=== PATIENT | female | born 1965 | race Caucasian/White ===

== ENCOUNTER 2017-09-05 12:31 | Emergency (ER) | payer BC ==
[2017-09-05] MEDS ORDERED: oxyCODONE/Acetamin 5/325 MG* TAB PO ONE (12:45)
--- NOTE | 2017-09-05 14:00 | RAD ---
HISTORY: Bilateral knee pain COMPARISONS: March 18, 2008 VIEWS: 7, Frontal, lateral, and oblique views of the left knee and of the right knee with axial views of both knees FINDINGS: Right: BONE DENSITY: Normal. BONES: There is no displaced fracture. JOINTS: There is moderate tricompartmental osteoarthritis, most pronounced within the medial compartment. This is progressed from the previous examination. ALIGNMENT: There is no dislocation. The alignment is anatomic. SOFT TISSUES: Unremarkable. Left: BONE DENSITY: Normal. BONES: There is no displaced fracture. JOINTS: There is moderate tricompartmental osteoarthritis, most pronounced within the medial compartment. ALIGNMENT: There is no dislocation. The alignment is anatomic. SOFT TISSUES: Unremarkable. OTHER FINDINGS: None. IMPRESSION: BILATERAL OSTEOARTHRITIS. NO ACUTE OSSEOUS INJURY. IF SYMPTOMS PERSIST, RECOMMEND REPEAT IMAGING.
--- NOTE | 2017-09-05 14:21 | ED ---
Ricardo Loaiza Thomas, scribed for Karla Purcell MD on 09/05/17 at 1248 . Lower Extremity - HPI Summary HPI Summary: The patient is a 52 y/o female presenting to the ED complaining of bilateral knee pain that began two days ago status post cortisone injections to bilateral knees that occurred three days ago. The pain is constant. The pain is moderate in severity. The pain is aggravated by movement and is alleviated by nothing. The patient has treated the pain with hydrocodone x1, ibuprofen, and muscle relaxers prior to arrival. Patient denies fever. - History of Current Complaint Stated Complaint: KNEE PAIN Time Seen by Provider: 09/05/17 12:37 Hx Obtained From: Patient Mechanism Of Injury: Other - Cortisone shots three days ago Onset of Pain: Days - 2 Onset/Duration: Still Present Severity Currently: Moderate Timing: Constant Location: Is Discrete @ - bilateral knee Associated Signs And Symptoms: Negative: Fever Aggravating Factor(s): Movement Alleviating Factor(s): Nothing - Allergies/Home Medications Allergies/Adverse Reactions: Allergies Allergy/AdvReac Type Severity Reaction Status Date / Time Sulfa Drugs Allergy Intermediate Swelling Verified 11/21/12 07:33 PMH/Surg Hx/FS Hx/Imm Hx Previously Healthy: No Endocrine/Hematology History: Reports: Hx Anticoagulant Therapy, Hx Diabetes Cardiovascular History: Reports: Hx Hypertension Respiratory History: Reports: Hx Asthma, Other Respiratory Problems/Disorders - pe Infectious Disease History: Denies: Traveled Outside the [place] in Last 30 Days - Family History Known Family History: Positive: Cardiac Disease - coronary artery disease, Hypertension, Diabetes - Social History Alcohol Use: None Hx Substance Use: No Substance Use Type: Reports: None Hx Tobacco Use: No Smoking Status (MU): Never Smoked Tobacco Review of Systems Negative: Fever Positive: Other - Bilateral knee pain All Other Systems Reviewed And Are Negative: Yes Physical Exam - Summary Physical Exam Summary: VITAL SIGNS: Reviewed. GENERAL: Patient is a morbidly obese female who is lying comfortable in the stretcher. Patient is not in any acute respiratory distress. HEAD AND FACE: No signs of trauma. No ecchymosis, hematomas or skull depressions. No sinus tenderness. EYES: PERRLA, EOMI x 2, No injected conjunctiva, no nystagmus. EARS: Hearing grossly intact. Ear canals and tympanic membranes are within normal limits. MOUTH: Oropharynx within normal limits. NECK: Supple, trachea is midline, no adenopathy, no JVD, no carotid bruit, no c- spine tenderness, neck with full ROM. CHEST: Symmetric, no tenderness at palpation LUNGS: Clear to auscultation bilaterally. No wheezing or crackles. CVS: Regular rate and rhythm, S1 and S2 present, no murmurs or gallops appreciated. ABDOMEN: Soft, non-tender, morbidly obese. No signs of distention. No rebound no guarding, and no masses palpated. Bowel sounds are normal. EXTREMITIES: She does not have tenderness, inflammatory signs, or swelling over her knees. She does have pain with left knee movement. FROM in all major joints , no edema, no cyanosis or clubbing. NEURO: Alert and oriented x 3. No acute neurological deficits. Speech is normal and follows commands. SKIN: Dry and warm Triage Information Reviewed: Yes Vital Signs Reviewed: Yes Diagnostics - Laboratory Lab Statement: Any lab studies that have been ordered have been reviewed, and results considered in the medical decision making process. - Radiology Bilateral Knee XR Xray Interpretation: No Acute Changes - BILATERAL OSTEOARTHRITIS. NO ACUTE OSSEOUS INJURY. IF SYMPTOMS PERSIST, RECOMMEND REPEAT IMAGING. ED physician has reviewed this report and agrees. Radiology Interpretation Completed By: ED Physician - ED physician reading: bilateral osteoarthritis. No fracture noted., Radiologist Re-Evaluation - Re-Evaluation First Eval Re-Evaluation Time: 14:11 Change: Unchanged Comment: I reviewed the knee XR with her and she is feeling better. Lower Extremity Course/Dx - Course Assessment/Plan: The patient has bilateral osteoarthritis. She will be given Percocet for the pain and follow up with orthopedics. My reading of the Knee XR shows bilateral osteoarthritis with no fracture. - Diagnoses Provider Diagnoses: Osteoarthritis of knees, bilateral Discharge - Discharge Plan Condition: Stable Disposition: HOME Patient Education Materials: Osteoarthritis (ED), Knee Pain (ED) Referrals: Bashir Upton MD [Medical Doctor] - 3 Days Additional Instructions: Follow up with Dr. Upton, orthopedics, in three days. Return to the emergency department for any new or worsening symptoms. The documentation as recorded by the Ricardo thomas Thomas accurately reflects the service I personally performed and the decisions made by me, Karla Purcell MD.
[2017-09-05 14:34] VITALS: BP 151/70
== END 2017-09-05 14:33 | disposition home or self-care (01) ==
LOC: ED 12:31
DX: M17.0 Bilateral primary osteoarthritis of knee (principal); M25.562 Pain in left knee; M25.561 Pain in right knee
CPT/HCPCS: 99282; A9270-GY

== ENCOUNTER 2018-06-24 13:26 | Inpatient (IN) | payer BC ==
[2018-06-24 15:28] LABS: EGFR Non-African American 90.2 (>60)
[2018-06-24 15:31] LABS: INR 2.44 (0.77-1.02)
[2018-06-24 15:39] LABS: ABS Basophils 0 10^3/ul (0-0.2); ABS Eosinophils 0.5 10^3/ul (0-0.6); ABS Lymphocytes 1.1 10^3/ul (1.0-4.8); ABS Monocytes 0.5 10^3/ul (0-0.8); ABS Neutrophils 7.1 10^3/ul (1.5-7.7); ABS Nucleated RBC 0 10^3/ul; Eosinophil % 5.2 % (0-6); Hematocrit 40 % (35-47); Hemoglobin 13.1 g/dl (12.0-16.0); Lymphocyte % 11.8 % (25-47); Mean Corpuscular HGB Conc 33 g/dl (31-36); Mean Corpuscular Hemoglobin 29 pg (27-31); Mean Corpuscular Volume 88 fL (80-97); Mean Platelet Volume 8.7 um3 (7.4-10.4); Nucleated Red Blood Cells % 0; Platelet Count 275 10^3/ul (150-450); Red Blood Count 4.52 10^6/ul (4.00-5.40); Red Cell Distribution Width 15 % (10.5-15); White Blood Count 9.2 10^3/ul (3.5-10.8)
--- NOTE | 2018-06-24 15:53 | RAD ---
INDICATION: Dizziness with hypertension COMPARISON: Most recent comparison chest x-ray is dated February 16, 2016 TECHNIQUE: Single AP portable view of the chest was obtained. FINDINGS: Image quality is compromised due to the relative inferiority of a portable chest x-ray. The heart and mediastinum exhibit normal size and contour. The lungs are grossly clear. There is no evidence of a large pleural effusion. Visualized bones are normal for the patient's age. IMPRESSION: No radiographic evidence for acute cardiopulmonary abnormality on this portable chest x-ray.
[2018-06-24] MEDS ORDERED: Iodixanol* (CONTRAST) 320 MG/ML 100 ML SDV IV ONE (16:02)
[2018-06-24] MEDS ORDERED: Magnesium Sulfate 2 GM IV* 2 GM/50 ML BAG IVPB ONE (16:30)
[2018-06-24] MEDS ORDERED: NS 0.9% 1000 ML*IV.FLUID IV ONE (16:52)
[2018-06-24] MEDS ORDERED: Magnesium Sulfate IV* 2 GM in NS 0.9% 100 ML* 100 ML IVPB ONE ×2 (17:00→21:10)
[2018-06-24] MEDS ORDERED: Atropine SYRINGE* 0.1 MG/ML 10 ML SYRINGE (1 MG) ONE (17:12)
[2018-06-24] MEDS: Atropine SYRINGE* 0.1 MG/ML 10 ML SYRINGE (1 MG) IV PUSH ONE ×2 (17:13→18:47)
--- NOTE | 2018-06-24 17:19 | RAD ---
INDICATION: Dizziness and right-sided headache COMPARISON: None. TECHNIQUE: Contiguous axial sections of the brain were obtained from the skull base to the vertex before and after the injection of 75 mL Visipaque 320 FINDINGS: The ventricles, cisterns and sulci are within normal limits. There are no enhancing masses. There is no evidence of acute vascular injury. The szymanski-white matter differentiation is adequately maintained and there is no sulcal effacement. No significant focal abnormality or mass effect is present. There is no evidence for intracranial hemorrhage. No significant focal osseous abnormality is present. The visualized portion of the paranasal sinuses appear clear. The mastoid air cells are well aerated bilaterally. IMPRESSION: Normal CT of the brain with and without intravenous contrast.
[2018-06-24] MEDS ORDERED: Phytonadione Oral Solution* 5 MG/25 ML UDC PO ONE (17:49)
--- NOTE | 2018-06-24 17:59 | ED ---
Dizziness - HPI Summary HPI Summary: Patient presents with acute on chronic dizziness today. She reports she's had dizziness over the past year but today it was worse. When this occurs, she said her vision goes dark and her upper body starts to shake. She does not syncopize when this happens nor did she syncopize today. She is been following with her PCP Dr. Burrell for these symptoms over the past year. She's been diagnosed with vertigo and takes meclizine which helps sometimes but sometimes it does not. She cannot consistently say that her symptoms are worse with positional change although position change can trigger a dizzy spell. She admits to symptoms when she's driving at times w/o turning her head or seatbelt pressing on her neck. She does have diabetes and checked her sugar after this dizziness today and her sugar was in the mid 100s which is normal for her. Her diabetes has been well controlled on oral medications for many years. Additionally, she does take atenolol for HTN and lisinopril for renal protection. She reports she was recently dropped from atenolol twice a day dose to once a day and did not notice any improvement in her dizziness symptoms. She also takes lasix PRN for LE edema. She reports she had a Holter monitor with symptoms but report was normal. Also states she had a nuclear stress test recently which was normal (Edu). She denies chest pain, shortness of breath , nausea, diaphoresis, numbness, tingling, weakness. She reports she get diarrhea most days but denies fever, chills, URI sx, ab pain, urinary sx and no rashes or wounds to report. She also denies h/o tick bite/Lyme disease but does not believe she's ever been tested. She is on coumadin for h/o PE and breast ca - believes she had testing while off of her coumadin and was told she does have a coaguloapthy so has been on coumadin for years since. Follows w/ Dr. Light and breast cancer status has been in remission. She reports her INR was 3.8 yesterday and so she held a dose - will repeat today. No other areas of bruising or bleeding to report. No recent falls or head injury. She and Dr. Burrell had discussed possible head imaging to further assess for chronic dizziness but this has not been done yet. No h/o TX or CVA. - History Of Current Complaint Chief Complaint: EDDizziness Stated Complaint: DIZZINESS Time Seen by Provider: 06/24/18 14:15 Hx Obtained From: Patient, Family/Wincher - mom - Allergies/Home Medications Allergies/Adverse Reactions: Allergies Allergy/AdvReac Type Severity Reaction Status Date / Time Sulfa (Sulfonamide Allergy Hives/Diff. Verified 06/24/18 13:32 Antibiotics) Breathing/I tching PMH/Surg Hx/FS Hx/Imm Hx Previously Healthy: Yes Endocrine/Hematology History: Reports: Hx Anticoagulant Therapy - coumadin, Hx Diabetes, Hx Coagulopothy - takes coumadin daily Denies: Hx Thyroid Disease, Hx Anemia Cardiovascular History: Reports: Hx Hypertension, Hx Valvular Heart Disease - cardiac murmur - assessed and reported as bengin Denies: Hx Congestive Heart Failure, Hx Coronary Artery Disease, Hx Myocardial Infarction, Hx Pacemaker/ICD, Hx Syncope Respiratory History: Reports: Hx Asthma, Hx Pulmonary Embolism, Other Respiratory Problems/Disorders - pe Denies: Hx Chronic Obstructive Pulmonary Disease (COPD), Hx Lung Cancer, Hx Pulmonary Edema GI History: Denies: Hx Cirrhosis, Hx Gastroesophageal Reflux Disease, Hx Hiatal Hernia History: Denies: Hx Acute Renal Failure, Hx Chronic Renal Failure, Hx Renal Disease Musculoskeletal History: Reports: Hx Arthritis - knees are "bone on bone" - h/o steroid injections, Hx Back Problems - per pt, stenosis Neurological History: Reports: Hx Headaches - Rt sided that involve periorbital region - intermittent, chronic Denies: Hx CVA, Hx Dementia - Cancer History Cancer Type, Location and Year: BREAST CA Date and Location of Last Treatment: Rt side of chest Infectious Disease History: No Infectious Disease History: Denies: Traveled Outside the [place] in Last 30 Days - Family History Known Family History: Positive: Cardiac Disease - coronary artery disease, a. fib, Hypertension, Diabetes - Social History Occupation: Employed Full-time - works from home for [employer] Lives: With Family - and children Alcohol Use: None Hx Substance Use: No Substance Use Type: Reports: None Hx Tobacco Use: No Smoking Status (MU): Never Smoked Tobacco Review of Systems Constitutional: Negative Negative: Fever, Chills, Fatigue Positive: Photophobia - mild. Negative: Blurred Vision, Diplopia ENT: Negative Negative: Epistaxis, Dental Pain, Sore Throat, Ear Ache, Nasal Discharge Cardiovascular: Negative Negative: Palpitations, Chest Pain Respiratory: Negative Negative: Shortness Of Breath, Cough Positive: Diarrhea - daily loose stools. Negative: Abdominal Pain, Vomiting, Nausea Genitourinary: Negative Positive: Arthralgia - chronic, B/L knees Skin: Negative Positive: Headache - Rt sided -mild (presents as usual WEIR). Negative: Weakness , Paresthesia, Numbness, Syncope, Slurred Speech Psychological: Normal All Other Systems Reviewed And Are Negative: Yes Physical Exam Triage Information Reviewed: Yes Vital Signs On Initial Exam: Initial Vitals Temp Pulse Resp BP Pulse Ox 98.8 F 71 16 146/74 99 06/24/18 13:29 06/24/18 13:29 06/24/18 13:06/24/18 13:06/24/18 13:29 Vital Signs Reviewed: Yes Appearance: Positive: Well-Appearing, No Pain Distress, Obese Skin: Positive: Warm, Skin Color Reflects Adequate Perfusion, Dry - no rash, no wounds Head/Face: Positive: Normal Head/Face Inspection Eyes: Positive: Normal, EOMI, SHIVA - mild photophobia w/ exam but okay w/ lights on in room, Conjunctiva Clear. Negative: Conjunctiva Inflammed, Discharge ENT: Positive: Normal ENT inspection, Hearing grossly normal, Pharynx normal, TMs normal, Uvula midline. Negative: Nasal congestion, Tonsillar swelling, Tonsillar exudate, Sinus tenderness Dental: Negative: Abscess @ Neck: Positive: Supple, Nontender, No Lymphadenopathy Respiratory/Lung Sounds: Positive: Clear to Auscultation, Breath Sounds Present. Negative: Rales, Rhonchi, Wheezes, Unable to speak in full sentences, Fatigue Cardiovascular: Positive: Pulses are Symmetrical in both Upper and Lower Extremities, Murmur, S1, S2. Negative: Leg Edema Left, Leg Edema Right Abdomen Description: Positive: Nontender, No Organomegaly, Soft Bowel Sounds: Positive: Present Musculoskeletal: Positive: Normal, Strength/ROM Intact Neurological: Positive: Normal, Sensory/Motor Intact, Alert, Oriented to Person Place, Time, CN Intact II-III, Facial Symmetry, Speech Normal, Other - no nystagmus. Negative: Pronator Drift Present Psychiatric: Positive: Normal Diagnostics - Vital Signs Vital Signs Temp Pulse Resp BP Pulse Ox 06/24/18 16:59 39 18 133/71 100 06/24/18 16:57 36 18 149/74 100 06/24/18 16:55 45 18 174/108 97 06/24/18 16:00 75 19 95 06/24/18 15:07 67 15 135/76 98 06/24/18 15:00 65 19 97 06/24/18 14:36 75 28 131/90 96 06/24/18 14:34 78 97 06/24/18 13:29 98.8 F 71 16 146/74 99 - Laboratory Lab Results: Lab Results 06/24/18 06/24/18 06/24/18 Range/Units 15:00 15:00 15:00 WBC 9.2 (3.5-10.8) 10^3/ul RBC 4.52 (4.00-5.40) 10^6/ul Hgb 13.1 (12.0-16.0) g/dl Hct 40 (35-47) % MCV 88 (80-97) fL MCH 29 (27-31) pg MCHC 33 (31-36) g/dl RDW 15 (10.5-15) % Plt Count 275 (150-450) 10^3/ul MPV 8.7 (7.4-10.4) um3 Neut % (Auto) 76.8 (38-83) % Lymph % (Auto) 11.8 L (25-47) % Divide % (Auto) 5.8 (0-7) % Eos % (Auto) 5.2 (0-6) % Baso % (Auto) 0.4 (0-2) % Absolute Neuts (auto) 7.1 (1.5-7.7) 10^3/ul Absolute Lymphs (auto) 1.1 (1.0-4.8) 10^3/ul Absolute Monos (auto) 0.5 (0-0.8) 10^3/ul Absolute Eos (auto) 0.5 (0-0.6) 10^3/ul Absolute Basos (auto) 0 (0-0.2) 10^3/ul Absolute Nucleated RBC 0 10^3/ul Nucleated RBC % 0 INR (Anticoag Therapy) 2.44 H (0.77-1.02) APTT 41.2 H (26.0-36.3) seconds Sodium 138 (135-145) mmol/L Potassium 4.5 (3.5-5.0) mmol/L Chloride 105 (101-111) mmol/L Carbon Dioxide 24 (22-32) mmol/L Anion Gap 9 (2-11) mmol/L BUN 13 (6-24) mg/dL Creatinine 0.68 (0.51-0.95) mg/dL Est GFR ( Amer) 109.1 (>60) Est GFR (Non-Af Amer) 90.2 (>60) BUN/Creatinine Ratio 19.1 (8-20) Glucose 162 H (70-100) mg/dL Lactic Acid (0.5-2.0) mmol/L Calcium 9.4 (8.6-10.3) mg/dL Magnesium 1.3 L (1.9-2.7) mg/dL Total Bilirubin 0.60 (0.2-1.0) mg/dL AST 18 (13-39) U/L ALT 27 (7-52) U/L Alkaline Phosphatase 74 (34-104) U/L Troponin I 0.00 (<0.04) ng/mL B-Natriuretic Peptide ( - 100) pg/mL Total Protein 6.6 (6.4-8.9) g/dL Albumin 4.1 (3.2-5.2) g/dL Globulin 2.5 (2-4) g/dL Albumin/Globulin Ratio 1.6 (1-3) TSH 2.23 (0.34-5.60) mcIU/mL 06/24/18 06/24/18 Range/Units 15:00 15:00 WBC (3.5-10.8) 10^3/ul RBC (4.00-5.40) 10^6/ul Hgb (12.0-16.0) g/dl Hct (35-47) % MCV (80-97) fL MCH (27-31) pg MCHC (31-36) g/dl RDW (10.5-15) % Plt Count (150-450) 10^3/ul MPV (7.4-10.4) um3 Neut % (Auto) (38-83) % Lymph % (Auto) (25-47) % Divide % (Auto) (0-7) % Eos % (Auto) (0-6) % Baso % (Auto) (0-2) % Absolute Neuts (auto) (1.5-7.7) 10^3/ul Absolute Lymphs (auto) (1.0-4.8) 10^3/ul Absolute Monos (auto) (0-0.8) 10^3/ul Absolute Eos (auto) (0-0.6) 10^3/ul Absolute Basos (auto) (0-0.2) 10^3/ul Absolute Nucleated RBC 10^3/ul Nucleated RBC % INR (Anticoag Therapy) (0.77-1.02) APTT (26.0-36.3) seconds Sodium (135-145) mmol/L Potassium (3.5-5.0) mmol/L Chloride (101-111) mmol/L Carbon Dioxide (22-32) mmol/L Anion Gap (2-11) mmol/L BUN (6-24) mg/dL Creatinine (0.51-0.95) mg/dL Est GFR ( Amer) (>60) Est GFR (Non-Af Amer) (>60) BUN/Creatinine Ratio (8-20) Glucose (70-100) mg/dL Lactic Acid 1.8 (0.5-2.0) mmol/L Calcium (8.6-10.3) mg/dL Magnesium (1.9-2.7) mg/dL Total Bilirubin (0.2-1.0) mg/dL AST (13-39) U/L ALT (7-52) U/L Alkaline Phosphatase (34-104) U/L Troponin I (<0.04) ng/mL B-Natriuretic Peptide 60 ( - 100) pg/mL Total Protein (6.4-8.9) g/dL Albumin (3.2-5.2) g/dL Globulin (2-4) g/dL Albumin/Globulin Ratio (1-3) TSH (0.34-5.60) mcIU/mL Result Diagrams: 06/26/18 08:53 06/26/18 08:53 Lab Statement: Any lab studies that have been ordered have been reviewed, and results considered in the medical decision making process. Dizzy Course/Dx - Course Course Of Treatment: While pt was here, heart rate dropped into low rate of 30's -40's with lack of contractions (missig beats on ECG) then PAC's and tachycardia. Pt became symptomatic with acute dizziness but no chest pain or SOB. Dr. Orozco got involved and Dr. Duncan was consulted. Pacer pads were placed and Dr. Duncan recommended 0.5mg Atropine. Pt's HR increased to 60's,70' s however she continued to have pauses on the monitor and dizziness sx. Pt's mag was also found to be low (1.3) and so this replacement was initiated at 2gm IV. Dr. Duncan would like pt admitted to ICU and will continue atropine as needed with rest until beta tyson has time to eliminate itself from her system (last took 25mg of atenolol this morning). We also iniated the reversal of her coumadin with Vitamin K 2.5mg PO in an effort to prep her for pacemaker placement in the next couple of days. Discussed w/ Dr. Ricci who will admit the patient. She is in gaurded condition, alert and oriented, in good spirits with good blood pressure, and pulse ox. Family has been with her and are aware of plan. CXR: no acute findings. CT brain w/wo contrast: no hemorrhage, no lesions - Diagnoses Provider Diagnoses: Sick sinus syndrome Discharge - Sign-Out/Discharge Documenting (check all that apply): Patient Departure - Discharge Plan Condition: Guarded Disposition: ADMITTED TO [facility] - Billing Disposition and Condition Condition: GUARDED Disposition: Admitted to [facility]
[2018-06-24] MEDS ORDERED: Atropine 1MG/ML INJ* 1 ML VIAL IV PUSH PRN (18:34)
[2018-06-24] MEDS ORDERED: NS 0.9% 100 ML* 100 ML ONE (18:58)
[2018-06-24] MEDS ORDERED: CALCIUM GLUCONATE IVPB ONE ×2 (19:00)
[2018-06-24] MEDS ORDERED: [UNRECOGNIZED DRUG - OTHER] IVPB ONE ×2 (19:00)
[2018-06-24] MEDS ORDERED: Dextrose 50% Syringe 50 ML* 25 GM/50 ML SYRINGE IV PUSH PRN (19:22)
[2018-06-24 19:23] LABS: EGFR Non-African American 98.5 (>60)
[2018-06-24] MEDS ORDERED: Furosemide TAB* 20 MG PO PRN (19:24)
[2018-06-24] MEDS ORDERED: Morphine VIAL* 4 MG/ML VIAL (1 ml vial) IV PRN (20:10)
[2018-06-24 20:55] LABS: Urine Appearance Cloudy; Urine Blood Negative (Negative); Urine Color Amber; Urine Ketones Trace (Negative); Urine Protein Negative (Negative); Urine Red Blood Cell Trace(0-2/hpf) (Absent); Urine Specific Gravity > 1.060 (1.010-1.030); Urine Urobilinogen Negative (Negative); Urine White Blood Cell Trace(0-5/hpf) (Absent)
[2018-06-24] MEDS ORDERED: Potassium Chloride LIQUID* 20 MEQ PACKET PO ONE (21:13)
[2018-06-24] MEDS: Insulin LISPRO* 1 UNITS UNIT SUBCUT SCH (21:15)
[2018-06-24] MEDS: glipiZIDE TAB.XL* 5 MG PO SCH (21:55)
[2018-06-24] MEDS: Atorvastatin* 20 MG TAB PO SCH (21:55)
[2018-06-24] MEDS ORDERED: Insulin LISPRO* 1 UNITS UNIT SUBCUT SCH (22:00)
[2018-06-24] MEDS ORDERED: EPINEPHrine SYR 0.1MG/ML* SYRINGE ONE (22:56)
--- NOTE | 2018-06-25 00:15 | CONS ---
CC: Dr. Burrell; Dr. Duncan CARDIOLOGY CONSULTATION NOTE: DATE OF CONSULT: 06/24/18 REASON FOR EVALUATION: Symptomatic bradycardia. CONSULTING PROVIDER: AZEEM Jaffe HISTORY OF PRESENT ILLNESS: This is a 53-year-old woman who has a year and half history of intermittent dizzy spells and dimming of vision. This will usually last 30 seconds or so and resolve. She has more mild dizzy spells that can last a few minutes and sometimes end with the more pronounced episode. She also has had episodes of feeling her heart race when she gets up and moves around, sometimes followed by dizzy spell. She said these spells has been happening every few days over the last year and half. She apparently had an evaluation with Dr. Burrell at [facility], which included what sound like a nuclear imaging stress test, which was negative according to the patient as well as a Holter monitor about a year ago. She had mild symptoms in the Holter, was told there were no significant abnormalities. She said that she has lived with these issues for the last year and half, but she said today it was more pronounced. She said that she had a spell while sitting still, which was more pronounced. She said typically she will have dimming of her vision and some shacking of her hands, but this episode lasted longer and was associated with shaking of the upper part of her body, because of that she came to the emergency room. In the emergency room, she was noted to have sinus rhythm on her baseline EKG with pronounced first degree AV block but then was having intermittent episodes of short runs of what appeared to be consecutive APCs followed by pauses of approximately 2.8 seconds and briefly some were longer up to 4 to 5 seconds followed by what appear to be APCs and sinus approximately 80 beats per minute. She denies any ree syncope. She said occasionally these episodes can occur with turning her head to the right. She denies any chest pain, but she said that today she felt more profoundly compromised than every before. She denies any fever, chills, sweats, cough, rashes or tick bites. She has spinal stenosis and limited by back pain. She says that she is unable to walk upstairs in her house or at work and works from home on a computer. PMH: past medical history includes hypertension diabetes hyperlipidemia DVT after tubal 20 years ago. At that time, she was treated with anticoagulation for period of time and then tested for hypercoagulable state and was found to be hypercoagulable and was restarted on anticoagulation. She has been anticoagulated since then. She denies any recurrent clotting events, TIAs. sleep apnea but was unable to tolerate her mask and has not been using it. obesity. murmur and had an echo years past, but results are not available. recently informed of positional vertigo but from her description it is unclear that explains her symptoms here. restless legs syndrome degenerative disk disease and the lower lumbar bone spur in the left knee osteoarthritis of her knees genital herpes diagnosed in March of 2016 asthma. PAST SURGICAL HISTORY: Her past surgeries include: 1. C-sections in November of 1983 and October of 1981. 2. Carpal tunnel both hands in 1995. 3. Tubal ligation June of 1998, complicated by clot in her right leg in June 1998 and pulmonary embolism. 4. D and C in January of 2002, removed the benign polyp, endometrial ablation performed March of 2003. 5. D and C in June 2004 and September of 2004 and November of 2004, April of 2005. She had abnormal cells, which came back benign. 6. Benign lump removed from left upper chest. 7. Breast cancer in the right breast, lumpectomy in 2015, clear margins and she had a radiation x19 treatments in December and January of 2016. She had 2 lymph nodes removed with the lumpectomy. MEDICATIONS: Include: 1. Ventolin/albuterol inhaler every 4 hours as needed. 2. Albuterol nebulizer every 4 hours. 3. Breo inhaler 200/25 daily. 4. Spiriva 1.25 mg 2 puffs daily. 5. Atenolol 25 mg a day, last taken this morning. 6. Metformin 500 mg 2 tablets twice a day. 7. Lipitor 20 mg a day. 8. Warfarin 10 mg a day and recently adjusted. 9. Furosemide 20 mg as needed for dependent edema 2 tablets at a time. 10. Singulair 10 mg a day. 11. Januvia 100 mg a day. 12. Glipizide XL 10 twice daily. 13. Flexeril up to 3 times a day as needed. 14. Arimidex 1 mg daily. 15. Oxycodone/acetaminophen 10/3.25 one tablet q.6 hours as needed and has been taking most of days. 16. Trulicity 1.5 one time a week. 17. Valacyclovir 500 mg two times a day for 5 days when needed. 18. Lisinopril 10 mg daily. 19. She is also on MultiVites including B vitamin, calcium, magnesium, zinc. 20. Fish oil 1000 mg 2 times day. 21. Vitamin C 500 mg a day. 22. Fiber Gummies 2 qd. 23. Turmeric 2 times a day 500 mg. ALLERGIES: Her allergies include SULFA which results in a rash; MSG is dizziness, nausea, and lightheadedness; AMOXICILLIN; DOXYCYCLINE; and THEOPHYLLINE did not work. She gets DUST, POLLEN, GRASS, and PET allergies. FAMILY HISTORY: Includes mother is alive and is at the bedside. She has migraines, fibromyalgia and thyroid disease. Father has asthma, esophageal reflux, hypothyroidism, and diabetes, and he is 76 and mother is 74. She has a brother who had AFib diagnosed at 51. He is now 53. He also has diabetes, hyperthyroidism, hypertension. Sister is alive and well. She has a daughter with scoliosis and MR. Son has hearing loss, almost no hearing, congenital. Owns no hearing in 1 ear, hearing aid in the other ear. REVIEW OF SYSTEMS: Review of systems x10 was negative except as above. PHYSICAL EXAM: He is a well-developed, obese female, in no apparent distress. Pulse of 47 with short runs of faster rhythm followed by short pauses, blood pressure 146/99, O2 sat 99% on room air. No significant JVD. Carotids 2+. Atraumatic, normocephalic, extraocular muscles intact. Cardiac Exam: S1, S2 with some variability and a 2/6 holosystolic murmur at the apex. Chest is clear. No CVAT. Abdomen: Bowel sounds present, nontender. Femoral pulses intact without bruits. Distal pulses intact. There is 1+ edema and some chronic venous stasis changes. 1+ to 2+ edema of lower extremities. Distal pulses intact. Negative Cabrera sign. Deep tendon reflexes 2/4 in the upper extremities, absent in the lower extremities, although it is difficult to evaluate her in the bed. DIAGNOSTIC STUDIES/LAB DATA: Her EKG revealed sinus rhythm with prolonged [place] interval. No acute changes from 1534 and then she subsequently had runs of pauses up to 5.5 seconds at 1639 followed by short runs of sinus rhythm or atrial beats and short runs of what appeared to be faster rhythms of approximately 110 beats per minute at times. IMPRESSION: This is 53-year-old woman with multiple medical problems as listed above, now with what appears to be symptomatic bradycardia. 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 In the short term, I would recommend the following, 1. We would reverse her hypomagnesemia. 2. We would use p.r.n. atropine as needed. She seen to respond to it in the emergency room. With just 0.5 mg, she had improvement in her pauses to the point that she was comfortable lying in bed. 3. We would continue with bed rest. 4. We will treat with calcium gluconate 2 g IV over 2 hours. 5. We will check Lyme titer. 6. We can reverse her anticoagulation and use sequential compression wraps given her high risk for coagulation. 7. We discussed possible need for a temporary pacemaker, but I am reluctant to do that at this point in time given her hypercoagulable state and need to remain relatively immobilized with a temporary pacemaker wire. 8. We will hold her beta-tyson for now. 9. If she fails to improve, we will consider pacemaker for Tuesday. She has a temporary transcutaneous pacemaker in place. 10. Over the residential, I recommended weight reduction and treatment of her sleep apnea. 11. Once she has a pacemaker, we could consider restarting the beta-tyson. 12. She is to have an echo to evaluate the murmur, examine her LV function. 13. We will try to get the results from [facility]. [id number]/[facility] #: [id number] addendum: DIAGNOSTIC STUDIES/LAB DATA: Labs included normal CBC and elevated INR of 2.44. Sodium 138, potassium of 4.5, BUN of 13, creatinine of 0.68. Glucose elevated at 162. Magnesium low at 1.3. Troponin normal at 0. BNP normal at 60. TSH normal at 2.23. Chest x-ray revealed no evidence of acute cardiopulmonary disease and brain CT revealed normal CT of the brain. She also has a history of a workup in September of [address] Endo, which was negative for an EMIR, but did have a CRP of 0.9 and thyroid peroxidase antibodies of 79.8, elevated with a normal TSH and a thyroglobulin antibody of 136, mildly elevated. \ Consider further evaluation for her thyroid status. d/w Dr. Wong. [id number]/[facility] #: [id number] [facility]
[2018-06-25] MEDS: Albuterol HFA INHALER* 8 gm MDI INH PRN ×3 (00:41→19:29)
--- NOTE | 2018-06-25 01:04 | CONS ---
CONSULTATION REPORT: ADDENDUM: DATE OF CONSULT: 06/24/18. DIAGNOSTIC STUDIES/LAB DATA: Labs included normal CBC and elevated INR of 2.44. Sodium 138, potassium of 4.5, BUN of 13, creatinine of 0.68. Glucose elevated at 162. Magnesium low at 1.3. Troponin normal at 0. BNP normal at 60. TSH normal at 2.23. Chest x-ray revealed no evidence of acute cardiopulmonary disease and brain CT revealed normal CT of the brain. She also has a history of a workup in September of [address] Rothman, which was negative for an EMIR, but did have a CRP of 0.9 and thyroid peroxidase antibodies of 79.8, elevated with a normal TSH and a thyroglobulin antibody of 136, mildly elevated. Consider further evaluation for her thyroid status. [id number]/[facility] #: [id number] MTDD
--- NOTE | 2018-06-25 01:28 | HP ---
CC: Dr. Burrell; Dr. Duncan ADMISSION HISTORY AND PHYSICAL: DATE OF ADMISSION: 06/24/18 CHIEF COMPLAINT: Dizziness. HISTORY OF PRESENT ILLNESS: Ms. Castle is a 53-year-old woman with history of diabetes and obesity , who reports episodic dizzy spells in the past 1-1/2 years. The dizzy spells are characterized by li ghtheadedness, vision darkening, occasional arm twitching. They can occur when she is seated or when moving around, going to the bathroom. The patient does not exert herself very much due to other chr onic conditions. The patient today had a very severe dizzy spell where she went to the bathroom and came back to sit down and she felt the dizziness come on and she felt her body shake in the upper david f of her body, she could not see and could not speak. This did pass quickly in terms of the physical movements and she did regain her ability to speak and see, but she still felt dizzy. Because of the se episodes, she has had a Holter monitor done in [place] within the last year. She also reports see ing Dr. Mc many years ago for other cardiac testing. She said she was told she had a functional h eart murmur. PAST MEDICAL HISTORY: Includes hypercoagulable state diagnosed after a DVT and PE about 20 years ago . She also has polycystic ovary disease; sleep apnea; degenerative disk disease; type 2 diabetes; hy pertension; history of breast cancer in November 2015, status post radiation, lumpectomy. PAST SURGICAL HISTORY: Includes lumpectomy, x2, carpal tunnel x2, and tubal ligation. MEDICATIONS ON ADMISSION: 1. Albuterol inhaler 2 puffs q.4 hours p.r.n. 2. Anastrozole 1 mg p.o. daily. 3. Vitamin C 1 tab daily. 4. Atenolol 25 mg p.o. daily. 5. Atorvastatin 20 mg p.o. q.p.m. 6. B complex 1 tab daily. 7. Calcium with magnesium 1 tab daily. 8. Trulicity 1.5 mg subcu weekly. 9. Breo Ellipta 1 inhalation daily. 10. Furosemide 20 mg p.o. b.i.d. p.r.n. for edema. 11. Glipizide 10 mg p.o. b.i.d. 12. Lisinopril 10 mg p.o. daily. 13. Metformin 1000 mg p.o. b.i.d. 14. Singulair 10 mg p.o. daily. 15. Fish oil 1000 mg p.o. b.i.d. 16. Oxycodone/acetaminophen 10/325 one tab p.o. q.6 hours p.r.n. pain. 17. Januvia 100 mg p.o. q.a.m. 18. Spiriva 1 cap inhaled twice at the same time once daily. 19. Valtrex 500 mg p.o. b.i.d. p.r.n. 20. Warfarin 10 mg p.o. q.p.m. 21. Flexeril 10 mg p.o. t.i.d. p.r.n. ALLERGIES: She is allergic to SULFA. FAMILY HISTORY: Notable father and brother with atrial fibrillation. Brother had atrial fibrillatio n at age 51. She has a sister with history of DVT. Mother has osteoarthritis. SOCIAL HISTORY: She works for the [employer]. She is . She has 2 children. She does not smoke. Denies any alcohol or drug use. REVIEW OF SYSTEMS: The patient denies any fevers, weight loss, anorexia. The patient denies any cuong st pain, palpitations, or shortness of breath. The patient denies any abdominal pain, nausea, vomiti ng, diarrhea, constipation. Remainder of 14-point review of systems is negative other than mentioned in the HPI. PHYSICAL EXAMINATION GENERAL: She is an obese woman, in no acute distress. VITAL SIGNS: Temperature is 37.1, pulse rate is 75, respirations 18, blood pressure is 133/71, O2 sa t is 100%. HEENT: Head is normocephalic, atraumatic. Sclerae anicteric. Pupils are equal, round, reactive to light and accommodation. Oropharynx is moist. No lesions. NECK: No JVD. No carotid bruits. No thyromegaly. LUNGS: Clear to auscultation and percussion bilaterally. HEART: Irregular with no murmurs auscultated. ABDOMEN: Obese, soft, nontender. Positive bowel sounds. No hepatosplenomegaly. EXTREMITIES: 1+ pitting edema bilaterally. Dorsalis pedis pulses 1+ bilaterally. NEUROLOGIC: Cranial nerves II through XII are intact. Motor strength is 5/5 throughout. Deep tendo n reflexes are symmetric. DIAGNOSTIC STUDIES/LAB DATA: Sodium 138, potassium 4.5, chloride 105, bicarb 24, BUN 13, creatinine 0.68, glucose 162, calcium 9.4, magnesium 1.3. Albumin 4.1, AST 18, ALT 27, bilirubin 0.6. Troponi n 0.00. TSH 2.23. White count 9.2, hemoglobin 13.1, hematocrit of 40%, platelets of 275. INR was 2 .44, PTT was 41.2. EKG initially showed normal sinus rhythm and a first-degree AV block, normal axis, normal QT and QRS intervals. No ischemic ST or T-wave changes. Subsequent rhythm strips taken in the ER as well as in the ambulance show episodes of pauses up to 5 seconds. No non-conducted P waves were seen. There a re also short bursts of irregular narrow complex activity, which consistent with burst of AFib or SVT . ASSESSMENT AND PLAN: A 53-year-old woman with apparent sick sinus syndrome with an element of tachyb rady syndrome. The sinuses pauses are giving her severe dizziness and near syncope symptoms. She wi ll be admitted to the intensive care unit for close monitoring after she received 2 doses of atropine in the emergency department. She may require further atropine or transcutaneous pacing overnight to night. The patient may also require a temporary pacemaker and a permanent pacemaker after consultati on with Cardiology. The patient's atenolol will be held of course, but the concern would be that thi s would allow the tachycardic portions of this rhythm disturbance to become worse. I discussed the c ase extensively with Dr. Duncan, who feels that she may need a pacemaker and reinstitution of beta- b locker. For her relative beta-tyson excess overnight, she has received IV calcium gluconate in the emergenc y department and may also receive glucagon overnight if necessary. We hope that she can lie still an d let the atenolol wear off and have not quite so severe pauses by tomorrow. For type 2 diabetes, we will continue her on her oral medications and her Trulicity, but accept to ho ld her Januvia, which is duplicated with Trulicity. We will give her fingersticks with meals and giv e her sliding scale insulin as needed. She will have magnesium corrected with intravenous boluses and have the magnesium rechecked in the mo rning. Low magnesium and low potassium can predispose to arrhythmias. Code status is full. For DVT prophylaxis, we will use mainly sequential compression devices. The warfarin is going to be held and she had received vitamin K in the emergency room to allow her to have a pacemaker placed aditi n the road in 2 days. [id number]/[facility] #: [id number]
[2018-06-25] MEDS: traMADol TAB* 50 MG PO PRN ×2 (02:17→09:28)
[2018-06-25] MEDS ORDERED: oxyCODONE TAB* 5 MG TAB ONE (04:16)
[2018-06-25] MEDS: oxyCODONE TAB* 5 MG TAB PO PRN ×3 (04:20→21:55)
[2018-06-25] MEDS ORDERED: Atropine SYRINGE* 0.1 MG/ML 10 ML SYRINGE (1 MG) IV PUSH PRN (05:08)
[2018-06-25] MEDS ORDERED: Albuterol 2.5 MG/3 ML NEB.SOL* (0.083%) INH ONE (05:23)
[2018-06-25 07:29] LABS: ABS Basophils 0.1 10^3/ul (0-0.2); ABS Eosinophils 0.4 10^3/ul (0-0.6); ABS Lymphocytes 1.3 10^3/ul (1.0-4.8); ABS Monocytes 0.6 10^3/ul (0-0.8); ABS Neutrophils 8.2 10^3/ul (1.5-7.7); ABS Nucleated RBC 0 10^3/ul; Hematocrit 38 % (35-47); Hemoglobin 12.6 g/dl (12.0-16.0); Lymphocyte % 12.2 % (25-47); Mean Corpuscular HGB Conc 33 g/dl (31-36); Mean Corpuscular Hemoglobin 29 pg (27-31); Mean Corpuscular Volume 88 fL (80-97); Mean Platelet Volume 9.3 um3 (7.4-10.4); Nucleated Red Blood Cells % 0.1; Platelet Count 289 10^3/ul (150-450); Red Blood Count 4.31 10^6/ul (4.00-5.40); Red Cell Distribution Width 14 % (10.5-15); White Blood Count 10.6 10^3/ul (3.5-10.8)
[2018-06-25 07:38] LABS: INR 1.87 (0.77-1.02)
[2018-06-25 07:50] LABS: EGFR Non-African American 98.5 (>60)
--- NOTE | 2018-06-25 07:51 | PN ---
Subjective Date of Service: 06/25/18 Interval History: Ms. Castle denies complaint this morning but has not been up out of bed. She specifically denies chest pain, palpitations, lightheadedness, dizziness, nausea , or abdominal pain. Objective Active Medications: Albuterol (Ventolin Hfa Inhaler*) 1 puff INH Q4H PRN Albuterol (Ventolin 2.5 Mg/3 Ml Neb.Tahmina*) 2.5 mg INH Q2H PRN Anastrozole (Arimidex (Nf)) 1 mg PO DAILY [facility]YLA Ascorbic Acid (Vitamin C Tab*) 500 mg PO DAILY LEYLA Atorvastatin Calcium (Lipitor*) 20 mg PO DAILY@2100 LEYLA Atropine Sulfate (Atropine Syringe*) 0.5 mg IV PUSH Q5M PRN Device (Tiotropium Inhaler Device*) 1 each INH 0900 ONE Dextrose (D50w Syringe 50 Ml*) 12.5 gm IV PUSH .FOR FS < 60 - SS PRN Dulaglutide (Trulicity (Nf)) 1.5 mg SUBCUT Sa@0900 LEYLA Fluticasone/Vilanterol (Breo Ellipta Mdi 200/25(Nf)) 1 puff INH DAILY LEYLA Furosemide (Lasix Tab*) 20 mg PO BID PRN Glipizide (Glucotrol Xl*) 10 mg PO BID WITH MEALS [facility] Insulin Human Lispro (Humalog*) 0 units SUBCUT FS ACHS ICU LEYLA; Protocol Lisinopril (Prinivil Tab*) 10 mg PO DAILY [facility] Metformin HCl (Glucophage*) 1,000 mg PO 0800,1700 LE[facility] Montelukast Sodium (Singulair Tab*) 10 mg PO DAILY LEYLA Morphine Sulfate (Morphine Vial*) 2 mg IV Q2H PRN Ondansetron HCl (Zofran Inj*) 4 mg IV Q4H PRN Oxycodone HCl (Roxycodone Tab*) 10 mg PO Q6H PRN Tiotropium [place] (Spiriva Cap.Inh*) 1 cap INH DAILY [facility]LA Tramadol HCl (Ultram*) 50 mg PO Q6H PRN Vital Signs: Temp Pulse Resp BP Pulse Ox 98.3 F 45 19 126/65 94 06/25/18 04:00 06/25/18 07:31 06/25/18 07:31 06/25/18 07:31 06/25/18 07:31 Oxygen Devices in Use Now: Nasal Cannula Appearance: Female lying in bed in NAD Eyes: No Scleral Icterus Ears/Nose/Mouth/Throat: Mucous Membranes Moist Neck: NL Appearance and Movements; NL JVP, Trachea Midline Respiratory: Symmetrical Chest Expansion and Respiratory Effort, Clear to Auscultation Cardiovascular: NL Sounds; No Murmurs; No JVD, - - +1-2 edema B LEs Abdominal: NL Sounds; No Tenderness; No Distention Skin: No Rash or Ulcers Neurological: Alert and Oriented x 3, NL Muscle Strength and Tone Nutrition: Taking PO's Result Diagrams: 06/25/18 07:05 06/25/18 07:05 Additional Lab and Data: . Microbiology and Other Data: . Assess/Plan/Problems-Billing Assessment: Ms. 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 - Patient Problems (1) Sick sinus syndrome Comment: - HR 40-50s, SBP 120-140s this AM. - Continue telemetry monitoring in the ICU. Echo pending. - Cardiology consult pending. Anticipate need for pacemaker, warfarin held. - Atropin and calcium gluconate given in ED, atenolol held. (2) Hypomagnesemia Comment: - Repleted overnight, Mag 1.9 this AM. - Mag sulfate 2 grams IV now. (3) Hypercoagulable state Comment: - Warfarin on hold with anticipated need for pacemaker placement. (4) Diabetes Comment: - BGs 200-100. - BGs qAC with lispro SSI coverage. Lantus 5 units at bedtime. - Hold glipizide, trulicity, metformin and januvia. (5) Asthma Comment: - No evidence of acute exacerbation. - Continue home meds. (6) Hypertension Comment: - SBP 120-140s. - Continue lisinopril, hold atenolol. (7) Hyperlipidemia Comment: - Continue atorvastatin. (8) DVT prophylaxis Comment: - Heparin SQ and SCDs (9) Full code status Comment:
[2018-06-25] MEDS ORDERED: metFORMIN* 500 MG TAB PO SCH (08:00)
[2018-06-25] MEDS ORDERED: Magnesium Sulfate IV* 2 GM in NS 0.9% 100 ML* 100 ML IVPB ONE (08:08)
[2018-06-25] MEDS ORDERED: Spiriva Inhaler DEVICE* 1 EACH DEVICE INH ONE (09:00)
[2018-06-25] MEDS ORDERED: PTO:Fluticasone/Vilanterol MDI(NF) 200/25 MDI INH SCH (09:00)
[2018-06-25] MEDS ORDERED: Perflutren Lipid Microsphere* 3 ML VIAL ONE (09:13)
[2018-06-25] MEDS: Montelukast Sodium TAB* 10 MG PO SCH (09:28)
[2018-06-25] MEDS: Lisinopril TAB* 10 MG PO SCH (09:28)
[2018-06-25] MEDS: Ascorbic Acid TAB* 500 MG PO SCH (09:28)
[2018-06-25] MEDS: CMCS:Anastrozole (NF) 1 MG TAB PO SCH (09:29)
[2018-06-25] MEDS: Tiotropium CAP.INH* CAP.INH/18 MCG (USE ORDER SET !) INH SCH (09:33)
[2018-06-25] MEDS: Insulin LISPRO* 1 UNITS UNIT SUBCUT SCH ×4 (10:44→21:51)
[2018-06-25] MEDS: Ondansetron INJ* 2 MG/ML VIAL IV PRN ×3 (11:37→23:55)
--- NOTE | 2018-06-25 12:25 | ECHO ---
Patient: MYLA RAMOS [facility] Rec#: [id number] : 1965 Date: 06/25/2018 Age: 53y Height: 160 cm / 63.0 in Weight: 154 kg / 339.4 lbs Sex: F BSA: 2.42 Room#: ICU 2 Admit Date#: 06/24/2018 Type: Inpatient Referring: Adin Duncan MD Reading: Adin Duncan MD Voice Teacher: Sparkle Hood RDCS,RDMS CC: Shemar Burrell MD Transthoracic Echocardiogram Indication: Murmur BP: 118/57 HR: 48 Rhythm: Bradycardia Findings History: DM, HTN, DVT/PE, breast cancer, morbid obesity Technical Comments: The study is technically limited due to poor apical windows. Left Ventricle: The left ventricular chamber size is normal. Moderate concentric left ventricular hypertrophy is observed. There is a prominent septal knuckle. The estimated ejection fraction is 60-65%. There is septal flattening of the interventricular septum consistent with right ventricular volume or pressure overload. Abnormal left ventricular diastolic function is observed. Abnormal left ventricular diastolic filling is observed, consistent with impaired relaxation. Left Atrium: The left atrium is mildly dilated. Right Ventricle: The right ventricle wall thickness is mildly increased. The right ventricular cavity size is normal. The right ventricular global systolic function is mildly reduced. Right Atrium: The right atrium is mildly dilated. Aortic Valve: The aortic valve is trileaflet. The aortic valve leaflets are mildly thickened. Systolic excursion of the aortic valve is normal. There is no evidence of aortic regurgitation. There is no evidence of aortic stenosis. Mitral Valve: Moderate mitral annular calcification present.especially posteriorly. Mitral valve leaflet mobility appears normal. There is no evidence of mitral regurgitation. There is no evidence of mitral stenosis. Tricuspid Valve: The tricuspid valve leaflets are normal. There is trace tricuspid regurgitation. There is evidence of mild pulmonary hypertension. Pulmonic Valve: The pulmonic valve appears normal. There is a trace pulmonic regurgitation. Pericardium: There is no significant pericardial effusion. Aorta: There is mild dilatation of the ascending aorta. The aortic arch is not well visualized. The aortic root is normal in size. Pulmonary Artery: The main pulmonary artery appears normal. Venous: The inferior vena cava appears normal in size. There is a greater than 50% respiratory change in the inferior vena cava dimension. Contrast: Definity was used to optimize study. A total of 2 ml was given by Mindy REYES (patient's nurse). Summary: There was not any prior study for comparison. Conclusions Moderate concentric left ventricular hypertrophy is observed. The estimated ejection fraction is 60-65%. There is mild septal flattening of the interventricular septum in some short axis views consistent with right ventricular volume or pressure overload. Abnormal left ventricular diastolic filling is observed, consistent with impaired relaxation. The left atrium is mildly dilated. The right ventricle wall thickness is mildly increased. The right ventricular global systolic function is mildly reduced. The right atrium is mildly dilated. Moderate mitral annular calcification present especially posteriorly. There is trace tricuspid regurgitation. There is mild dilatation of the ascending aorta. Measurements Name Value Normal Range RVIDd (AP) 2D 2.4 cm (0.9 - 2.6) RAd ISD 4CH 5.4 cm (3.4 - 4.9) RA (A4C)W 4.3 cm (2.9 - 4.6) IVSd (2D) 1.4 cm (0.6 - 1) LVPWd (2D) 1.3 cm (0.6 - 1) LVIDd (2D) 5.2 cm (3.6 - 5.4) LVIDs (2D) 3.4 cm - LV FS (2D) 35 % (25 - 45) Aortic Annulus 2 cm (1.4 - 2.6) Ao root diameter (2D) 3.2 cm (2.1 - 3.5) Ascending Ao 3.9 cm (2.1 - 3.4) LA dimension (AP) 2D 4 cm (2.3 - 3.8) LAd ISD 4CH 6 cm (2.9 - 5.3) LA ISD 4CH W 4.4 cm (2.5 - 4.5) Name Value Normal Range LA ESV BP (A/L) index 34 ml/m2 - Name Value Normal Range MV E-wave Vmax 1.4 m/sec - MV deceleration time 172 msec - MV A-wave Vmax 0.4 m/sec - MV E:A ratio 3.7 ratio - LV septal e' Vmax 0.07 m/sec - LV lateral e' Vmax 0.08 m/sec - LV E:e' septal ratio 20 ratio - LV E:e' lateral ratio 16 ratio - Name Value Normal Range AV Vmax 2.1 m/sec - AV VTI 39 cm - AV peak gradient 18 mmHg - AV mean gradient 8 mmHg - LVOT diameter 2 cm - LVOT Vmax 1.5 m/sec - LVOT VTI 32 cm - LVOT peak gradient 9 mmHg - LVOT mean gradient 4 mmHg - DOI (VTI) 0.8 ratio - ALMITA (continuity Vmax) 2.2 cm2 - ALMITA (continuity VTI) 2.6 cm2 - Name Value Normal Range MV Vmax 1.6 m/sec - MV VTI 58 cm - MV peak gradient 10 mmHg - MV mean gradient 2 mmHg - MV PHT 97 msec - MVA (PHT) 2.3 cm2 - MVA (continuity VTI) 1.7 cm2 - Name Value Normal Range TR Vmax 3 m/sec - TR peak gradient 36 mmHg - RAP 3 mmHg - RVSP 39 mmHg - IVC diameter 2.1 cm - Name Value Normal Range PV Vmax 0.7 m/sec - PV peak gradient 2 mmHg -
[2018-06-25] MEDS: Albuterol 2.5 MG/3 ML NEB.SOL* (0.083%) INH PRN (13:34)
[2018-06-25] MEDS: Heparin VIAL(*) 5000 UNITS/ML VIAL (FIVE THOUSAND) SUBCUT SCH ×2 (15:39→21:52)
[2018-06-25] MEDS: Insulin GLARGINE(*) 1 UNITS UNIT SUBCUT SCH (21:51)
[2018-06-25] MEDS: Atorvastatin* 20 MG TAB PO SCH (21:51)
[2018-06-26] MEDS: Albuterol 2.5 MG/3 ML NEB.SOL* (0.083%) INH PRN ×2 (00:17→23:36)
[2018-06-26] MEDS: Heparin VIAL(*) 5000 UNITS/ML VIAL (FIVE THOUSAND) SUBCUT SCH ×3 (07:00→21:17)
--- NOTE | 2018-06-26 07:48 | PN ---
Subjective Date of Service: 06/26/18 Interval History: Ms. Castle reports feeling worse today. She is asymptomatic and lightheaded with more frequent pauses this morning. She denies other complaint including chest pain, SOB, nausea, or abdominal pain. Objective Active Medications: Albuterol (Ventolin Hfa Inhaler*) 1 puff INH Q4H PRN Albuterol (Ventolin 2.5 Mg/3 Ml Neb.Tahmina*) 2.5 mg INH Q2H PRN Anastrozole (Arimidex (Nf)) 1 mg PO DAILY [facility] Ascorbic Acid (Vitamin C Tab*) 500 mg PO DAILY [facility] Atorvastatin Calcium (Lipitor*) 20 mg PO DAILY@2100 [facility] Atropine Sulfate (Atropine Syringe*) 0.5 mg IV PUSH Q5M PRN Dextrose (D50w Syringe 50 Ml*) 12.5 gm IV PUSH .FOR FS < 60 - SS PRN Fluticasone/Vilanterol (Breo Ellipta Mdi 200/25(Nf)) 1 puff INH DAILY [facility] Heparin Sodium (Porcine) (Heparin Vial(*)) 5,000 units SUBCUT Q8HR [facility] Insulin Glargine (Lantus(*)) 5 units SUBCUT BEDTIME [facility] Insulin Human Lispro (Humalog*) 0 units SUBCUT FS ACHS ICU [facility]; Protocol Lisinopril (Prinivil Tab*) 10 mg PO DAILY [facility] Montelukast Sodium (Singulair Tab*) 10 mg PO DAILY [facility] Morphine Sulfate (Morphine Vial*) 2 mg IV Q2H PRN Ondansetron HCl (Zofran Inj*) 4 mg IV Q4H PRN Oxycodone HCl (Roxycodone Tab*) 10 mg PO Q6H PRN Tiotropium [place] (Spiriva Cap.Inh*) 1 cap INH DAILY [facility] Tramadol HCl (Ultram*) 50 mg PO Q6H PRN Vital Signs: Temp Pulse Resp BP Pulse Ox 97.9 F 43 18 129/74 96 06/26/18 04:00 06/26/18 06:00 06/26/18 06:00 06/26/18 06:00 06/26/18 06:00 Oxygen Devices in Use Now: Nasal Cannula Appearance: Female lying in bed in NAD Eyes: No Scleral Icterus Ears/Nose/Mouth/Throat: Mucous Membranes Moist Neck: Trachea Midline Respiratory: Symmetrical Chest Expansion and Respiratory Effort, Clear to Auscultation Cardiovascular: NL Sounds; No Murmurs; No JVD, No Edema Abdominal: NL Sounds; No Tenderness; No Distention Lymphatic: No Cervical Adenopathy Extremities: No Edema Skin: No Rash or Ulcers Neurological: Alert and Oriented x 3, NL Muscle Strength and Tone Nutrition: Taking PO's Result Diagrams: 06/26/18 08:53 06/26/18 08:53 Additional Lab and Data: . Microbiology and Other Data: . Assess/Plan/Problems-Billing Assessment: Ms. 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 - Patient Problems (1) Sick sinus syndrome Comment: - HR 30-40s with more frequent pauses, remains in ICU with external pacer pads in place, Dr. Mc aware, SBP 90-140s. - Echo shows no significant wall motion or valvular abnormalities, mild left atrial dilitation. - Appreciate cardiology consult. Anticipate pacemaker placement today, warfarin held. - Atenolol held. Hold lisinopril to support BP. (2) Hypomagnesemia Comment: - Resolved. (3) Hypercoagulable state Comment: - Warfarin on hold with anticipated need for pacemaker placement. (4) Diabetes Comment: - BGs 100-200. - BGs qAC with lispro SSI coverage. Lantus 5 units at bedtime. - Hold glipizide, trulicity, metformin and januvia. (5) Asthma Comment: - No evidence of acute exacerbation. - Continue home meds. (6) Hypertension Comment: - SBP 90-110s. - Hold lisinopril, hold atenolol. (7) Hyperlipidemia Comment: - Continue atorvastatin. (8) DVT prophylaxis Comment: - Heparin SQ and SCDs (9) Full code status Comment: Status and Disposition: Inpatient. Anticipate discharge to home when medically stable.
[2018-06-26] MEDS: Insulin LISPRO* 1 UNITS UNIT SUBCUT SCH ×4 (07:51→21:17)
[2018-06-26] MEDS: Tiotropium CAP.INH* CAP.INH/18 MCG (USE ORDER SET !) INH SCH (08:11)
[2018-06-26] MEDS ORDERED: ceFAZolin 1 GM VIAL(*) 1 GM in NS 0.9% 50 ML* 50 ML IVPB ONE (08:40)
[2018-06-26] MEDS ORDERED: ceFAZolin 2 GM PREMIX in ORs 2 GM/50 ML BAG IVPB ONE (08:40)
[2018-06-26 09:05] LABS: ABS Basophils 0.1 10^3/ul (0-0.2); ABS Eosinophils 0.1 10^3/ul (0-0.6); ABS Lymphocytes 0.9 10^3/ul (1.0-4.8); ABS Monocytes 0.8 10^3/ul (0-0.8); ABS Neutrophils 9.9 10^3/ul (1.5-7.7); ABS Nucleated RBC 0 10^3/ul; Eosinophil % 0.7 % (0-6); Hematocrit 35 % (35-47); Hemoglobin 11.5 g/dl (12.0-16.0); Lymphocyte % 7.3 % (25-47); Mean Corpuscular HGB Conc 33 g/dl (31-36); Mean Corpuscular Hemoglobin 29 pg (27-31); Mean Corpuscular Volume 89 fL (80-97); Mean Platelet Volume 8.8 um3 (7.4-10.4); Nucleated Red Blood Cells % 0; Platelet Count 271 10^3/ul (150-450); Red Blood Count 3.97 10^6/ul (4.00-5.40); Red Cell Distribution Width 15 % (10.5-15); White Blood Count 11.7 10^3/ul (3.5-10.8)
[2018-06-26] MEDS: Ondansetron INJ* 2 MG/ML VIAL IV PRN ×2 (09:10→19:36)
[2018-06-26] MEDS: Lisinopril TAB* 10 MG PO SCH (09:15)
[2018-06-26] MEDS: Montelukast Sodium TAB* 10 MG PO SCH (09:15)
[2018-06-26 09:16] LABS: INR 1.32 (0.77-1.02)
[2018-06-26] MEDS: Ascorbic Acid TAB* 500 MG PO SCH (09:16)
[2018-06-26] MEDS: CMCS:Anastrozole (NF) 1 MG TAB PO SCH (09:17)
[2018-06-26 09:30] LABS: EGFR Non-African American 74.7 (>60)
[2018-06-26] MEDS ORDERED: ceFAZolin VIAL 1 GM in NS *SYRINGE * * 10 ML ONE (10:00)
[2018-06-26] MEDS: NS 0.9% 1000 ML* 1,000 ML IV SCH (11:00)
[2018-06-26] MEDS ORDERED: Lidocaine 1% INJ* 10 MG/ML 30 ML SDV ONE (12:38)
[2018-06-26] MEDS ORDERED: ceFAZolin 2 GM in NS 100 ml - ONCE (Pharmacy Admix) IVPB ONE (13:00)
[2018-06-26] MEDS ORDERED: Midazolam* 1 MG/ML 5 ML VIAL (5 MG) ONE (13:10)
[2018-06-26] MEDS ORDERED: fentaNYL* 50 MCG/ML 2 ML VIAL (100 MCG VIAL) ONE (13:10)
[2018-06-26] MEDS ORDERED: Flumazenil* 0.1 MG/ML 5 ML MDV ONE (13:10)
[2018-06-26] MEDS ORDERED: Naloxone* 0.4 MG/ML 1 ML VIAL ONE (13:10)
[2018-06-26] MEDS ORDERED: Acetaminophen TAB* 325 MG PO PRN (14:20)
[2018-06-26] MEDS: glipiZIDE TAB.XL* 5 MG PO SCH (16:55)
--- NOTE | 2018-06-26 18:04 | RAD ---
Indication: Post pacemaker placement. Comparison: June 24, 2018 Technique: Upright AP 1645 hours Report: These of the newly placed LEFT chest wall pacemaker device extend to the level of the RIGHT atrium and RIGHT ventricle. Negative for pneumothorax. Cardiomegaly, prominent ill-defined central pulmonary vasculature with perihilar opacities and diffuse prominence of interstitial markings. Grossly clear pleural spaces. IMPRESSION: #. Negative for pneumothorax post pacemaker placement. #. Pulmonary edema grossly new compared with the June 24, 2018 exam.
[2018-06-26] MEDS: ceFAZolin 1 GM in Dextrose (*) 1 GM/50 ML BAG IVPB SCH (18:31)
[2018-06-26] MEDS: oxyCODONE TAB* 5 MG TAB PO PRN (19:36)
[2018-06-26] MEDS: Insulin GLARGINE(*) 1 UNITS UNIT SUBCUT SCH (21:17)
[2018-06-26] MEDS: Atorvastatin* 20 MG TAB PO SCH (21:18)
[2018-06-26] MEDS: PTO:Fluticasone/Vilanterol MDI(NF) 200/25 MDI INH SCH (23:34)
[2018-06-27] MEDS: ceFAZolin 1 GM in Dextrose (*) 1 GM/50 ML BAG IVPB SCH ×2 (01:06→08:34)
[2018-06-27] MEDS: NS 0.9% 1000 ML* 1,000 ML IV SCH (01:12)
[2018-06-27] MEDS: Ondansetron INJ* 2 MG/ML VIAL IV PRN (05:23)
[2018-06-27] MEDS: Heparin VIAL(*) 5000 UNITS/ML VIAL (FIVE THOUSAND) SUBCUT SCH ×3 (05:23→20:58)
[2018-06-27] MEDS: oxyCODONE TAB* 5 MG TAB PO PRN ×2 (05:23→13:36)
[2018-06-27] MEDS: Ascorbic Acid TAB* 500 MG PO SCH (07:35)
[2018-06-27] MEDS: Montelukast Sodium TAB* 10 MG PO SCH (07:35)
[2018-06-27] MEDS: oxyCODONE/Acetamin 5/325 MG* TAB PO PRN ×3 (07:35→20:25)
[2018-06-27] MEDS: CMCS:Anastrozole (NF) 1 MG TAB PO SCH (07:36)
[2018-06-27] MEDS: Tiotropium CAP.INH* CAP.INH/18 MCG (USE ORDER SET !) INH SCH (08:07)
[2018-06-27] MEDS: Insulin LISPRO* 1 UNITS UNIT SUBCUT SCH ×4 (08:30→20:59)
--- NOTE | 2018-06-27 09:02 | RAD ---
INDICATION: Status post pacemaker placement. COMPARISON: June 26, 2018 TECHNIQUE: Dual energy PA and routine lateral views of the chest were obtained. REPORT: RIGHT atrial and RIGHT ventricular level pacemaker leads. Negative for pneumothorax. Mild cardiomegaly. Prominent ill-defined central pulmonary vasculature and prominent interstitial markings. Grossly clear pleural spaces. RIGHT axillary surgical clips. IMPRESSION: #. Pulmonary vascular congestion and interstitial edema with interval improvement compared with the exam of one day prior. #. Negative for pneumothorax.
[2018-06-27] MEDS: traMADol TAB* 50 MG PO PRN (12:05)
[2018-06-27] MEDS ORDERED: Furosemide IV* 10 MG/ML VIAL (40 MG) IV ONE (15:38)
[2018-06-27] MEDS: Albuterol 2.5 MG/3 ML NEB.SOL* (0.083%) INH PRN (16:26)
--- NOTE | 2018-06-27 17:29 | PN ---
Subjective Date of Service: 06/27/18 Interval History: c/o shortness of breath with exertion. c/o left shoulder pain, and back pain. States back pain is chronic. attempted to wean O2 today - o2 decreased to 77 % on RA. Denies chest pain or shortness of breath. Denies abd pain n/v/d. Family History: Unchanged from Admission Social History: Unchanged from Admission Past Medical History: Unchanged from Admission Objective Active Medications: Acetaminophen (Tylenol Tab*) 650 mg PO Q4H PRN PRN Reason: PAIN Albuterol (Ventolin Hfa Inhaler*) 1 puff INH Q4H PRN PRN Reason: SOB/WHEEZING Last Admin: 06/25/18 19:29 Dose: 1 puff Albuterol (Ventolin 2.5 Mg/3 Ml Neb.Tahmina*) 2.5 mg INH Q2H PRN PRN Reason: SOB/WHEEZING Last Admin: 06/27/18 16:26 Dose: 2.5 mg Anastrozole (Arimidex (Nf)) 1 mg PO DAILY [facility] Last Admin: 06/27/18 07:36 Dose: 1 mg Ascorbic Acid (Vitamin C Tab*) 500 mg PO DAILY [facility] Last Admin: 06/27/18 07:35 Dose: 500 mg Atenolol (Tenormin Tab*) 25 mg PO DAILY [facility] Atorvastatin Calcium (Lipitor*) 20 mg PO DAILY@2100 [facility] Last Admin: 06/26/18 21:18 Dose: 20 mg Atropine Sulfate (Atropine Syringe*) 0.5 mg IV PUSH Q5M PRN PRN Reason: BRADYCARDIA Dextrose (D50w Syringe 50 Ml*) 12.5 gm IV PUSH .FOR FS < 60 - SS PRN PRN Reason: FS < 60 Fluticasone/Vilanterol (Breo Ellipta Mdi 200/25(Nf)) 1 puff INH 2100 [facility] Last Admin: 06/26/18 23:34 Dose: 1 puff Heparin Sodium (Porcine) (Heparin Vial(*)) 5,000 units SUBCUT Q8HR [facility] Last Admin: 06/27/18 13:06 Dose: 5,000 units Insulin Glargine (Lantus(*)) 5 units SUBCUT BEDTIME [facility] Last Admin: 06/26/18 21:17 Dose: 5 unit Insulin Human Lispro (Humalog*) 0 units SUBCUT FS ACHS ICU [facility]; Protocol Last Admin: 06/27/18 13:06 Dose: 4 units Montelukast Sodium (Singulair Tab*) 10 mg PO DAILY [facility] Last Admin: 06/27/18 07:35 Dose: 10 mg Morphine Sulfate (Morphine Vial*) 2 mg IV Q2H PRN PRN Reason: IF BEING EXTERNALLY PACED Ondansetron HCl (Zofran Inj*) 4 mg IV Q4H PRN PRN Reason: n/v Last Admin: 06/27/18 05:23 Dose: 4 mg Oxycodone HCl (Roxycodone Tab*) 10 mg PO Q6H PRN PRN Reason: PAIN Last Admin: 06/27/18 13:36 Dose: 10 mg Oxycodone/Acetaminophen (Percocet 5/325 Tab*) 1 tab PO Q4H PRN PRN Reason: PAIN Last Admin: 06/27/18 12:06 Dose: 1 tab Tiotropium [place] (Spiriva Cap.Inh*) 1 cap INH DAILY [facility] Last Admin: 06/27/18 08:07 Dose: Not Given Tramadol HCl (Ultram*) 50 mg PO Q6H PRN PRN Reason: PAIN Last Admin: 06/27/18 12:05 Dose: 50 mg Warfarin Sodium (Coumadin Tab(*)) 10 mg PO DAILY@1700 [facility]; Protocol Vital Signs - 8 hr 06/27/18 06/27/18 06/27/18 10:19 11:13 12:05 Temperature 98.1 F Pulse Rate 86 Respiratory 16 16 18 Rate Blood Pressure 126/73 (mmHg) O2 Sat by Pulse 97 Oximetry 06/27/18 06/27/18 06/27/18 12:06 13:36 16:00 Temperature Pulse Rate Respiratory 18 16 20 Rate Blood Pressure (mmHg) O2 Sat by Pulse Oximetry Oxygen Devices in Use Now: Nasal Cannula Appearance: obese, sitting in the chair , no acute distress. Eyes: No Scleral Icterus Ears/Nose/Mouth/Throat: Clear Oropharnyx, Mucous Membranes Moist Neck: NL Appearance and Movements; NL JVP, Trachea Midline Respiratory: Symmetrical Chest Expansion and Respiratory Effort, - - diminshed in the bases bilat Cardiovascular: NL Sounds; No Murmurs; No JVD, RRR Abdominal: NL Sounds; No Tenderness; No Distention Extremities: No Clubbing, Cyanosis, - - bilat lower ext with +2 pitting edema Skin: No Rash or Ulcers Neurological: Alert and Oriented x 3 Nutrition: Taking PO's Result Diagrams: 06/26/18 08:53 06/26/18 08:53 Additional Lab and Data: Lab Results 06/24/18 06/24/18 06/24/18 Range/Units 15:00 15:00 15:00 WBC 9.2 (3.5-10.8) 10^3/ul RBC 4.52 (4.00-5.40) 10^6/ul Hgb 13.1 (12.0-16.0) g/dl Hct 40 (35-47) % MCV 88 (80-97) fL MCH 29 (27-31) pg MCHC 33 (31-36) g/dl RDW 15 (10.5-15) % Plt Count 275 (150-450) 10^3/ul MPV 8.7 (7.4-10.4) um3 Neut % (Auto) 76.8 (38-83) % Lymph % (Auto) 11.8 L (25-47) % Owen % (Auto) 5.8 (0-7) % Eos % (Auto) 5.2 (0-6) % Baso % (Auto) 0.4 (0-2) % Absolute Neuts (auto) 7.1 (1.5-7.7) 10^3/ul Absolute Lymphs (auto) 1.1 (1.0-4.8) 10^3/ul Absolute Monos (auto) 0.5 (0-0.8) 10^3/ul Absolute Eos (auto) 0.5 (0-0.6) 10^3/ul Absolute Basos (auto) 0 (0-0.2) 10^3/ul Absolute Nucleated RBC 0 10^3/ul Nucleated RBC % 0 INR (Anticoag Therapy) 2.44 H (0.77-1.02) APTT 41.2 H (26.0-36.3) seconds Sodium 138 (135-145) mmol/L Potassium 4.5 (3.5-5.0) mmol/L Chloride 105 (101-111) mmol/L Carbon Dioxide 24 (22-32) mmol/L Anion Gap 9 (2-11) mmol/L BUN 13 (6-24) mg/dL Creatinine 0.68 (0.51-0.95) mg/dL Est GFR ( Amer) 109.1 (>60) Est GFR (Non-Af Amer) 90.2 (>60) BUN/Creatinine Ratio 19.1 (8-20) Glucose 162 H (70-100) mg/dL Lactic Acid (0.5-2.0) mmol/L Calcium 9.4 (8.6-10.3) mg/dL Magnesium 1.3 L (1.9-2.7) mg/dL Total Bilirubin 0.60 (0.2-1.0) mg/dL AST 18 (13-39) U/L ALT 27 (7-52) U/L Alkaline Phosphatase 74 (34-104) U/L Troponin I 0.00 (<0.04) ng/mL B-Natriuretic Peptide ( - 100) pg/mL Total Protein 6.6 (6.4-8.9) g/dL Albumin 4.1 (3.2-5.2) g/dL Globulin 2.5 (2-4) g/dL Albumin/Globulin Ratio 1.6 (1-3) TSH 2.23 (0.34-5.60) mcIU/mL 06/24/18 06/24/18 Range/Units 15:00 15:00 WBC (3.5-10.8) 10^3/ul RBC (4.00-5.40) 10^6/ul Hgb (12.0-16.0) g/dl Hct (35-47) % MCV (80-97) fL MCH (27-31) pg MCHC (31-36) g/dl RDW (10.5-15) % Plt Count (150-450) 10^3/ul MPV (7.4-10.4) um3 Neut % (Auto) (38-83) % Lymph % (Auto) (25-47) % Owen % (Auto) (0-7) % Eos % (Auto) (0-6) % Baso % (Auto) (0-2) % Absolute Neuts (auto) (1.5-7.7) 10^3/ul Absolute Lymphs (auto) (1.0-4.8) 10^3/ul Absolute Monos (auto) (0-0.8) 10^3/ul Absolute Eos (auto) (0-0.6) 10^3/ul Absolute Basos (auto) (0-0.2) 10^3/ul Absolute Nucleated RBC 10^3/ul Nucleated RBC % INR (Anticoag Therapy) (0.77-1.02) APTT (26.0-36.3) seconds Sodium (135-145) mmol/L Potassium (3.5-5.0) mmol/L Chloride (101-111) mmol/L Carbon Dioxide (22-32) mmol/L Anion Gap (2-11) mmol/L BUN (6-24) mg/dL Creatinine (0.51-0.95) mg/dL Est GFR ( Amer) (>60) Est GFR (Non-Af Amer) (>60) BUN/Creatinine Ratio (8-20) Glucose (70-100) mg/dL Lactic Acid 1.8 (0.5-2.0) mmol/L Calcium (8.6-10.3) mg/dL Magnesium (1.9-2.7) mg/dL Total Bilirubin (0.2-1.0) mg/dL AST (13-39) U/L ALT (7-52) U/L Alkaline Phosphatase (34-104) U/L Troponin I (<0.04) ng/mL B-Natriuretic Peptide 60 ( - 100) pg/mL Total Protein (6.4-8.9) g/dL Albumin (3.2-5.2) g/dL Globulin (2-4) g/dL Albumin/Globulin Ratio (1-3) TSH (0.34-5.60) mcIU/mL Microbiology and Other Data: . Assess/Plan/Problems-Billing Assessment: Ms. 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 - Patient Problems (1) Sick sinus syndrome Current Visit: Yes Status: Acute Code(s): I49.5 - SICK SINUS SYNDROME SNOMED Code(s): 55818367 Comment: - Echo shows no significant wall motion or valvular abnormalities, mild left atrial dilitation. - pacemaker placed - HR 90's - shortness of breath improved some - will resume atenolol - Hold lisinopril will resume as BP allows . (2) Shortness of breath Current Visit: Yes Status: Acute Code(s): R06.02 - SHORTNESS OF BREATH SNOMED Code(s): 068603573 Comment: CXR showed - pulmonary edema - Lower EXT with + 2-3 pitting edema - reports shortness of breath with exertion - will stop IV fluids - will give lasix 40 mg IV x1 - Room air O2 sats were 77% - will attempt to wean O2 tomorrow again and recheck o2 sats- suspect this is partial related to pulmonary edema and well as her underlying asthma (3) Asthma Current Visit: Yes Status: Acute Code(s): J45.909 - UNSPECIFIED ASTHMA, UNCOMPLICATED SNOMED Code(s): 658374401 Comment: - No evidence of acute exacerbation. - Continue home meds. (4) Diabetes Current Visit: Yes Status: Acute Code(s): E11.9 - TYPE 2 DIABETES MELLITUS WITHOUT COMPLICATIONS SNOMED Code(s): 48019931 Comment: - BGs 240-273 - BGs qAC with lispro SSI coverage. - increase Lantus 10 units at bedtime. - Hold glipizide, trulicity, metformin and januvia. (5) Hyperlipidemia Current Visit: Yes Status: Acute Code(s): E78.5 - HYPERLIPIDEMIA, UNSPECIFIED SNOMED Code(s): 40242559 Comment: - Continue atorvastatin. (6) Hypertension Current Visit: Yes Status: Acute Code(s): I10 - ESSENTIAL (PRIMARY) HYPERTENSION SNOMED Code(s): 36020953 Comment: -126-132. - will resume atenolol - will continue to hold lisinopril and resume when BP allows (7) Chronic back pain Current Visit: Yes Status: Acute Code(s): M54.9 - DORSALGIA, UNSPECIFIED; G89.29 - OTHER CHRONIC PAIN SNOMED Code(s): 108012837 Comment: Will continue home medications (8) Hypercoagulable state Current Visit: Yes Status: Acute Code(s): D68.59 - OTHER PRIMARY THROMBOPHILIA SNOMED Code(s): 67642070 Comment: - Warfarin restarted today (9) DVT prophylaxis Current Visit: Yes Status: Acute Code(s): OLH6194 - SNOMED Code(s): 642464062 Comment: - warfarin (10) Full code status Current Visit: Yes Status: Acute Code(s): Z78.9 - OTHER SPECIFIED HEALTH STATUS SNOMED Code(s): 938143925 Comment: Status and Disposition: Inpatient. Anticipate discharge to home when medically stable.
[2018-06-27] MEDS: Warfarin TAB(*) 10 MG PO SCH (18:27)
[2018-06-27] MEDS: Atorvastatin* 20 MG TAB PO SCH (20:57)
[2018-06-27] MEDS ORDERED: Insulin GLARGINE(*) 1 UNITS UNIT SUBCUT SCH (21:00)
--- NOTE | 2018-06-27 23:49 | OP ---
CC: Dr. Adin Duncan * DATE OF OPERATION: 06/26/18 - ROOM #431 DATE OF : 63 SURGEON: Av Mc MD ANESTHESIA: Local anesthesia with conscious sedation. PRE-OP DIAGNOSIS: Tachybrady syndrome. POST-OP DIAGNOSIS: Tachybrady syndrome. OPERATIVE PROCEDURE: Dual-chamber pacemaker implantation. INDICATIONS: The patient is a 53-year-old woman with a history of hypertension , diabetes, who was admitted to the hospital with dizzy episodes. The patient was having up to 5-second with pauses with symptoms. Permanent pacemaker implantation was recommended. ESTIMATED BLOOD LOSS: Nil. COMPLICATIONS: None. DESCRIPTION OF PROCEDURE: The patient was brought to the procedure room in a fasting state. Informed consent had been obtained prior to the procedure. All labs had been reviewed. The patient was placed supine on the procedure table and her right deltopectoral area was cleaned and draped in the usual fashion. 1 % lidocaine was used for local anesthesia. The axillary vein was entered by a modified Seldinger technique and a guidewire was placed. A second wire was placed under the same technique. A 4-cm incision was made in the pectoral area and blunt dissection was carried down to the pectoral fascia. A pocket was fashioned for the pacemaker. Over the first guidewire, a 7-Yemeni sheath introducer was placed, through which a right ventricular lead was advanced to the RV apex and the right ventricular lead is a Medtronic model 5076, serial number [id number] and had a R- wave sensitivity of 7, impedance 1023 ohms, threshold 0.8 volts at 0.5 milliseconds. The ventricular lead was sutured to the pectoral fascia. Over the second guidewire, a 7-Yemeni sheath introducer was placed, through which a right atrial lead was advanced to the high right atrium. The right atrial lead is a Medtronic model 5076, serial number [id number] and had a P-wave sensitivity of 1.9, impedance 509 ohms, threshold 0.9 volts at 0.5 milliseconds. The atrial lead was sutured to the pectoral fascia. The pocket was flushed with antibiotic infused normal saline. A generator was attached appropriately to the atrioventricular lead. The generator is a Medtronic model [id number], serial number [id number]. The device was placed in the pocket and surgical incision was closed in 3 layers. The patient was returned to the holding area in stable condition. [id number]/[facility] #: [id number] PATRICK
[2018-06-28] MEDS: PTO:Fluticasone/Vilanterol MDI(NF) 200/25 MDI INH SCH ×2 (00:48→02:02)
[2018-06-28] MEDS: oxyCODONE/Acetamin 5/325 MG* TAB PO PRN ×3 (02:03→20:02)
[2018-06-28 06:18] LABS: INR 1.39 (0.77-1.02)
[2018-06-28 06:31] LABS: Hematocrit 36 % (35-47); Hemoglobin 11.9 g/dl (12.0-16.0); Mean Corpuscular HGB Conc 33 g/dl (31-36); Mean Corpuscular Hemoglobin 29 pg (27-31); Mean Corpuscular Volume 89 fL (80-97); Red Blood Count 4.06 10^6/ul (4.00-5.40); Red Cell Distribution Width 15 % (10.5-15)
[2018-06-28 06:55] LABS: Platelet Count 235 10^3/ul (150-450); White Blood Count 12.7 10^3/ul (3.5-10.8)
[2018-06-28 06:58] LABS: ABS Basophils 0 10^3/ul (0-0.2); ABS Neutrophils 10.9 10^3/ul (1.5-7.7); ABS Neutrophils 11.1 10^3/ul (1.5-7.7); Monocytes % 8 % (0-7)
[2018-06-28] MEDS: Tiotropium CAP.INH* CAP.INH/18 MCG (USE ORDER SET !) INH SCH (07:46)
[2018-06-28] MEDS ORDERED: Atenolol TAB* 25 MG PO SCH (09:00)
[2018-06-28] MEDS: Ascorbic Acid TAB* 500 MG PO SCH (09:58)
[2018-06-28] MEDS: Insulin LISPRO* 1 UNITS UNIT SUBCUT SCH ×3 (09:59→17:46)
[2018-06-28] MEDS: Montelukast Sodium TAB* 10 MG PO SCH (09:59)
[2018-06-28] MEDS: CMCS:Anastrozole (NF) 1 MG TAB PO SCH (10:00)
[2018-06-28] MEDS ORDERED: Furosemide IV* 10 MG/ML 2 ML VIAL (20 MG) IV ONE (12:57)
--- NOTE | 2018-06-28 13:27 | PN ---
Subjective Date of Service: 06/28/18 Interval History: States that breathing is improving, does continue to have shortness of breath with exertion. Denies chest pain or abd pain . O2 weaned to RA with o2 sats of 94-97%. Left chest pacemaker site without redness. malathi intact. continues to c/o pain to left shoulder. Family History: Unchanged from Admission Social History: Unchanged from Admission Past Medical History: Unchanged from Admission Objective Active Medications: Acetaminophen (Tylenol Tab*) 650 mg PO Q4H PRN PRN Reason: PAIN Albuterol (Ventolin Hfa Inhaler*) 1 puff INH Q4H PRN PRN Reason: SOB/WHEEZING Last Admin: 06/25/18 19:29 Dose: 1 puff Albuterol (Ventolin 2.5 Mg/3 Ml Neb.Tahmina*) 2.5 mg INH Q2H PRN PRN Reason: SOB/WHEEZING Last Admin: 06/27/18 16:26 Dose: 2.5 mg Anastrozole (Arimidex (Nf)) 1 mg PO DAILY [facility] Last Admin: 06/28/18 10:00 Dose: 1 mg Ascorbic Acid (Vitamin C Tab*) 500 mg PO DAILY [facility] Last Admin: 06/28/18 09:58 Dose: 500 mg Atenolol (Tenormin Tab*) 25 mg PO DAILY [facility] Last Admin: 06/28/18 09:59 Dose: 25 mg Atorvastatin Calcium (Lipitor*) 20 mg PO DAILY@2100 [facility] Last Admin: 06/27/18 20:57 Dose: 20 mg Atropine Sulfate (Atropine Syringe*) 0.5 mg IV PUSH Q5M PRN PRN Reason: BRADYCARDIA Dextrose (D50w Syringe 50 Ml*) 12.5 gm IV PUSH .FOR FS < 60 - SS PRN PRN Reason: FS < 60 Fluticasone/Vilanterol (Breo Ellipta Mdi 200/25(Nf)) 1 puff INH 2100 [facility] Last Admin: 06/28/18 02:02 Dose: 1 puff Insulin Glargine (Lantus(*)) 10 units SUBCUT BEDTIME [facility] Last Admin: 06/27/18 20:58 Dose: 10 units Insulin Human Lispro (Humalog*) 0 units SUBCUT FS ACHS ICU [facility]; Protocol Last Admin: 06/28/18 09:59 Dose: 6 units Montelukast Sodium (Singulair Tab*) 10 mg PO DAILY [facility] Last Admin: 06/28/18 09:59 Dose: 10 mg Ondansetron HCl (Zofran Inj*) 4 mg IV Q4H PRN PRN Reason: n/v Last Admin: 06/27/18 05:23 Dose: 4 mg Oxycodone HCl (Roxycodone Tab*) 10 mg PO Q6H PRN PRN Reason: PAIN Last Admin: 06/27/18 13:36 Dose: 10 mg Oxycodone/Acetaminophen (Percocet 5/325 Tab*) 1 tab PO Q4H PRN PRN Reason: PAIN Last Admin: 06/28/18 09:58 Dose: 1 tab Tiotropium Orange (Spiriva Cap.Inh*) 1 cap INH DAILY [facility] Last Admin: 06/28/18 07:46 Dose: 1 cap Tramadol HCl (Ultram*) 50 mg PO Q6H PRN PRN Reason: PAIN Last Admin: 06/27/18 12:05 Dose: 50 mg Warfarin Sodium (Coumadin Tab(*)) 10 mg PO DAILY@1700 [facility]; Protocol Last Admin: 06/27/18 18:27 Dose: 10 mg Vital Signs - 8 hr 06/28/18 06/28/18 06/28/18 07:17 07:48 08:00 Temperature 99.4 F Pulse Rate 89 92 Respiratory 18 16 16 Rate Blood Pressure 136/78 (mmHg) O2 Sat by Pulse 98 97 Oximetry 06/28/18 06/28/18 09:58 11:02 Temperature 98.6 F Pulse Rate 85 Respiratory 18 18 Rate Blood Pressure 125/74 (mmHg) O2 Sat by Pulse 97 Oximetry Oxygen Devices in Use Now: Nasal Cannula Appearance: alert, sitting in the chair. appears comfortable Eyes: No Scleral Icterus Ears/Nose/Mouth/Throat: Clear Oropharnyx, Mucous Membranes Moist Neck: NL Appearance and Movements; NL JVP, Trachea Midline Respiratory: Symmetrical Chest Expansion and Respiratory Effort, - - diminished at the bases bilat Cardiovascular: NL Sounds; No Murmurs; No JVD Abdominal: NL Sounds; No Tenderness; No Distention Extremities: No Clubbing, Cyanosis, - - +3 pitting edema to bilat lower ext Skin: No Rash or Ulcers Neurological: Alert and Oriented x 3 Nutrition: Taking PO's Result Diagrams: 06/28/18 05:19 09/24/18 08:53 Additional Lab and Data: Lab Results 06/24/18 06/24/18 06/24/18 Range/Units 15:00 15:00 15:00 WBC 9.2 (3.5-10.8) 10^3/ul RBC 4.52 (4.00-5.40) 10^6/ul Hgb 13.1 (12.0-16.0) g/dl Hct 40 (35-47) % MCV 88 (80-97) fL MCH 29 (27-31) pg MCHC 33 (31-36) g/dl RDW 15 (10.5-15) % Plt Count 275 (150-450) 10^3/ul MPV 8.7 (7.4-10.4) um3 Neut % (Auto) 76.8 (38-83) % Lymph % (Auto) 11.8 L (25-47) % Foster % (Auto) 5.8 (0-7) % Eos % (Auto) 5.2 (0-6) % Baso % (Auto) 0.4 (0-2) % Absolute Neuts (auto) 7.1 (1.5-7.7) 10^3/ul Absolute Lymphs (auto) 1.1 (1.0-4.8) 10^3/ul Absolute Monos (auto) 0.5 (0-0.8) 10^3/ul Absolute Eos (auto) 0.5 (0-0.6) 10^3/ul Absolute Basos (auto) 0 (0-0.2) 10^3/ul Absolute Nucleated RBC 0 10^3/ul Nucleated RBC % 0 INR (Anticoag Therapy) 2.44 H (0.77-1.02) APTT 41.2 H (26.0-36.3) seconds Sodium 138 (135-145) mmol/L Potassium 4.5 (3.5-5.0) mmol/L Chloride 105 (101-111) mmol/L Carbon Dioxide 24 (22-32) mmol/L Anion Gap 9 (2-11) mmol/L BUN 13 (6-24) mg/dL Creatinine 0.68 (0.51-0.95) mg/dL Est GFR ( Amer) 109.1 (>60) Est GFR (Non-Af Amer) 90.2 (>60) BUN/Creatinine Ratio 19.1 (8-20) Glucose 162 H (70-100) mg/dL Lactic Acid (0.5-2.0) mmol/L Calcium 9.4 (8.6-10.3) mg/dL Magnesium 1.3 L (1.9-2.7) mg/dL Total Bilirubin 0.60 (0.2-1.0) mg/dL AST 18 (13-39) U/L ALT 27 (7-52) U/L Alkaline Phosphatase 74 (34-104) U/L Troponin I 0.00 (<0.04) ng/mL B-Natriuretic Peptide ( - 100) pg/mL Total Protein 6.6 (6.4-8.9) g/dL Albumin 4.1 (3.2-5.2) g/dL Globulin 2.5 (2-4) g/dL Albumin/Globulin Ratio 1.6 (1-3) TSH 2.23 (0.34-5.60) mcIU/mL 06/24/18 06/24/18 Range/Units 15:00 15:00 WBC (3.5-10.8) 10^3/ul RBC (4.00-5.40) 10^6/ul Hgb (12.0-16.0) g/dl Hct (35-47) % MCV (80-97) fL MCH (27-31) pg MCHC (31-36) g/dl RDW (10.5-15) % Plt Count (150-450) 10^3/ul MPV (7.4-10.4) um3 Neut % (Auto) (38-83) % Lymph % (Auto) (25-47) % Foster % (Auto) (0-7) % Eos % (Auto) (0-6) % Baso % (Auto) (0-2) % Absolute Neuts (auto) (1.5-7.7) 10^3/ul Absolute Lymphs (auto) (1.0-4.8) 10^3/ul Absolute Monos (auto) (0-0.8) 10^3/ul Absolute Eos (auto) (0-0.6) 10^3/ul Absolute Basos (auto) (0-0.2) 10^3/ul Absolute Nucleated RBC 10^3/ul Nucleated RBC % INR (Anticoag Therapy) (0.77-1.02) APTT (26.0-36.3) seconds Sodium (135-145) mmol/L Potassium (3.5-5.0) mmol/L Chloride (101-111) mmol/L Carbon Dioxide (22-32) mmol/L Anion Gap (2-11) mmol/L BUN (6-24) mg/dL Creatinine (0.51-0.95) mg/dL Est GFR ( Amer) (>60) Est GFR (Non-Af Amer) (>60) BUN/Creatinine Ratio (8-20) Glucose (70-100) mg/dL Lactic Acid 1.8 (0.5-2.0) mmol/L Calcium (8.6-10.3) mg/dL Magnesium (1.9-2.7) mg/dL Total Bilirubin (0.2-1.0) mg/dL AST (13-39) U/L ALT (7-52) U/L Alkaline Phosphatase (34-104) U/L Troponin I (<0.04) ng/mL B-Natriuretic Peptide 60 ( - 100) pg/mL Total Protein (6.4-8.9) g/dL Albumin (3.2-5.2) g/dL Globulin (2-4) g/dL Albumin/Globulin Ratio (1-3) TSH (0.34-5.60) mcIU/mL Microbiology and Other Data: . Assess/Plan/Problems-Billing Assessment: Ms. 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 - Patient Problems (1) Sick sinus syndrome Status: Acute Code(s): I49.5 - SICK SINUS SYNDROME SNOMED Code(s): 44996906 Comment: - Echo shows no significant wall motion or valvular abnormalities, mild left atrial dilitation. - pacemaker placed - HR 90's - shortness of breath improved some - will resume atenolol - lisinopril will resume as BP allows . (2) Shortness of breath Status: Acute Code(s): R06.02 - SHORTNESS OF BREATH SNOMED Code(s): 893492234 Comment: CXR showed pulmonary vascular congestion - Shortness of breath improved after lasix yesterday- continues to have SOB with exertion - will give lasix 20 mg IV today - continues to have +3 pitting edema to bilat lower ext - O2 weaned this AM to RA with o2 sats of 94- 97% at rest and 90-91% with exertion (3) Asthma Status: Acute Code(s): J45.909 - UNSPECIFIED ASTHMA, UNCOMPLICATED SNOMED Code(s): 553739456 Comment: - No evidence of acute exacerbation. - Continue home meds. (4) Diabetes Status: Acute Code(s): E11.9 - TYPE 2 DIABETES MELLITUS WITHOUT COMPLICATIONS SNOMED Code(s): 61998012 Comment: - BGs 244-261 - BGs qAC with lispro SSI coverage. - increase Lantus 10 units at bedtime- stop lantus at discharge - will resume glipizide, trulicity, metformin and januvia at discharge (5) Hyperlipidemia Status: Acute Code(s): E78.5 - HYPERLIPIDEMIA, UNSPECIFIED SNOMED Code(s): 31507585 Comment: - Continue atorvastatin. (6) Hypertension Status: Acute Code(s): I10 - ESSENTIAL (PRIMARY) HYPERTENSION SNOMED Code(s) : 45488345 Comment: -sbp 125-136. - will continue atenolol, lisinopril (7) Chronic back pain Status: Acute Code(s): M54.9 - DORSALGIA, UNSPECIFIED; G89.29 - OTHER CHRONIC PAIN SNOMED Code(s): 703967848 Comment: Will continue home medications (8) Hypercoagulable state Status: Acute Code(s): D68.59 - OTHER PRIMARY THROMBOPHILIA SNOMED Code(s): 88151761 Comment: - Warfarin restarted (9) DVT prophylaxis Status: Acute Code(s): BWK9279 - SNOMED Code(s): 741678657 Comment: - will also use lovenox while inpatient at prophylaxis dosing - on discharge warfarin only - no bridge dosing d/t the increased riskof bleeding into the pacemaker pocket which would lead to an increase risk of infection. as per Dr. Wade recommendations (10) Full code status Status: Acute Code(s): Z78.9 - OTHER SPECIFIED HEALTH STATUS SNOMED Code(s) : 652891741 Comment: Status and Disposition: Inpatient. Anticipate discharge to home when medically stable.
[2018-06-28 16:08] VITALS: BP 129/74
[2018-06-28] MEDS: Warfarin TAB(*) 10 MG PO SCH (17:46)
[2018-07-01] MEDS ORDERED: DULAGLUTIDE 1.5 MG/0.5 ML SUBCUT SCH (09:00)
--- NOTE | 2018-07-02 03:06 | DS ---
CC: Dr. Mc; Dr. Shemar Burrell * DISCHARGE SUMMARY: DATE OF ADMISSION: 06/24/18 DATE OF DISCHARGE: 06/28/18 PROVIDER: Jazz Shoemaker NP ATTENDING PHYSICIAN: Dr. Estela Lay * (dictated by Jazz Shoemaker NP). PRIMARY CARE PROVIDER: Dr. Shemar Burrell. PRIMARY DIAGNOSES: 1. Sick sinus syndrome, status post pacemaker placement. 2. Hypomagnesium. SECONDARY DIAGNOSES: 1. Diabetes. 2. Obesity. 3. Hypercoagulable state diagnosed after a deep venous thrombosis and pulmonary embolism approximately 20 years ago. 4. Polycystic ovary disease. 5. Sleep apnea. 6. Degenerative disk disease. 7. Hypertension. 8. History of breast cancer in 2016, status post radiation and lumpectomy. STUDIES COMPLETED WHILE IN THE HOSPITAL: The patient had a transthoracic echocardiogram on 06/24/18. Conclusion: Moderate concentric left ventricular hypertrophy is observed. Estimated ejection fraction of 60% to 65%. There is mild septal flattening in the intraventricular septum and some short axis views consistent with right ventricular volume or pressure overload, abnormal left ventricular diastolic filling is observed consistent with impaired relaxation. The left atrium is mildly dilated. The right ventricle wall is thickened and mildly increased. The right ventricle globus systolic function is mildly reduced. The right atrium is mildly dilated. Moderate mitral annular calcifications present especially posteriorly. There is trace tricuspid regurgitation. There is mild dilation of the ascending aorta. She had an electrocardiogram on 06/25/18, which showed a junctional rhythm at a rate of 44. She had an EKG on 06/27/18, which showed a paced rhythm at a rate of 87. She had a chest x-ray on 06/27/18. Radiologist's impression: Pulmonary vascular congestion with interstitial edema with interval improvement when compared to exam 1 day prior, negative for pneumothorax. DISCHARGE MEDICATIONS: New home medications: 1. Keflex 250 mg p.o. t.i.d. for 3 days. Home medications: 1. Warfarin 10 mg p.o. daily. 2. Januvia 100 mg p.o. daily. 3. [place] 3 fatty acid 1000 mg p.o. b.i.d. 4. Singulair 10 mg p.o. daily. 5. Furosemide 20 mg p.o. b.i.d. 6. Fluticasone 1 puff inhaled daily 7. Cyclobenzaprine 10 mg p.o. t.i.d. p.r.n. 8. Calcium 1 tab p.o. daily. 9. Vitamin B complex 1 tab p.o. daily. 10. Atorvastatin 20 mg p.o. daily. 11. Atenolol 25 mg p.o. daily. 12. Ascorbic acid 500 mg p.o. daily. 13. Lisinopril 10 mg p.o. daily. 14. Valtrex 500 mg p.o. b.i.d. p.r.n. 15. Trulicity 1.5 mg subcu weekly. 16. Oxycodone/acetaminophen 10/325 one tablet p.o. q.6 hours as needed for pain. 17. Anastrozole 1 mg p.o. daily. 18. Glipizide 10 mg p.o. b.i.d. 19. Metformin 1000 mg p.o. b.i.d. 20. Spiriva 2 puffs inhaled daily. 21. Albuterol inhaler 1 puff q.4 hours. HISTORY OF PRESENT ILLNESS AND HOSPITAL COURSE: Ms. Castle is a 53-year-old female with a past medical history significant for diabetes, obesity, hypercoagulable state diagnosed after DVT and PE 20 years ago, polycystic ovarian disease, sleep apnea, hypertension, who presented to the emergency room for reported episodes of dizzy spells for the past 1.5 years, her dizzy spells are characterized by lightheadedness, vision darkening, and occasional arm twitching. They occur when she is seated or when she is moving around, going to the bathroom. The patient does not exert herself very much due to her chronic conditions. The patient today had severe dizziness where she went to the bathroom and came back and sat down and felt the dizziness come on, she felt her body shake in the upper half of her body, she could not see and could not speak. This did pass quickly in terms of her physical movements and she did regain the ability to speak and see, but she still felt dizzy. Because of these episodes, she had a Holter monitor done in [place] within the last year. She also reports seeing Dr. Mc many years ago for cardiac testing. She was told she had a functional heart murmur. Due to her symptoms of dizziness, we were asked to see and evaluate her for admission. While in the emergency room, she had routine lab work drawn. She had an EKG. Her initial EKG in the emergency room showed first degree AV block, normal axis, normal QT, QRS intervals. No ischemic ST or T wave changes. Subsequent rhythm strips taken in the ER as well as in the ambulance showed episodes of pauses up to 5 seconds. No non-conducting P waves were seen. There are also short bursts of irregular narrow complex activity, which was consistent of burst of AFib or SVT. Given the heart block and sick sinus syndrome, the patient was admitted to the hospital for tachybrady syndrome, sinus pauses, which were giving her dizzy and near syncopal symptoms. She was admitted to the intensive care unit. She was given 2 doses of atropine in the emergency room. She required further atropine and transcutaneous pacing overnight. During the hospitalization, she was seen and evaluated by Cardiology, who recommended pacemaker placement. During this hospitalization, the patient did have a pacemaker placed by Dr. Mc. She tolerated the procedure well without any complications. On 06/27/18 , after her pacemaker placement, the patient complained of some shortness of breath with exertion and complaint of left shoulder pain. She was found to have a decrease in oxygen saturation to 77% on room air. She did have a chest x -ray, which showed pulmonary vascular congestion. Given these findings, the patient was given Lasix IV for diuresis, and much of her symptoms did improve during the hospitalization. On the day of discharge, the patient reports that her shortness of breath is greatly improved. She is able to remain on room air saturations with ambulation at 90 to 91% and at rest she is 94 to 97% on room air. At this time, she is stable for discharge home. Vital signs are as follows: Temperature was 98.6, heart rate 87, respirations 22, O2 saturation on room air was 94%, blood pressure 129/74. DISCHARGE PLAN: Ms. Castle will be discharged back home. Activity as tolerated. The shoulder immobilizer should remain in place. She should not lift her left arm above her shoulder. She should continue on her heart-healthy consisting carb diet. 1. Sick sinus syndrome, status post pacemaker placement. The patient should follow up with Dr. Mc in 1 week to have the malathi from the pacemaker insertion site removed. She should watch the left chest for signs of infection , redness, drainage or swelling. I also did consult Dr. Wade about bridging her Coumadin due to her INR being well. It was not recommended to bridge Coumadin with Lovenox due to the increased risk of bleeding and the formation of blood, which would increase the risk of infection. She should take Keflex 250 mg p.o. t.i.d. for 3 days. She will need to follow up with Dr. Duncan in 2 weeks. She needs to call the office for an appointment. 2. Pulmonary vascular congestion. I suspect that this is related to her heart block and possibly we will give her Lasix 20 mg IV. She did receive 20 mg of IV Lasix while in the hospital. She should continue on Lasix 20 mg p.o. b.i.d. at home on a daily basis. 3. Diabetes. She should resume her home medications as previously prescribed. 4. Hyperlipidemia. She should continue her atorvastatin. 5. Hypertension. She should continue her atenolol. She should continue her Lasix and lisinopril. 6. Chronic back pain. She should resume her home medications as previously prescribed. 7. Hypercoagulable state, history of DVT and PE. She should continue her Coumadin at 10 mg p.o. daily. We did not bridge her with Lovenox or heparin due to her recent pacemaker placement in the risk of increased bleeding into the pacemaker pocket, which would increase the risk of infection as per recommendations by Dr. Wade from Cardiology. FOLLOWUP: The patient should follow up with her primary care provider in 4 to 7 days. She should follow up with Dr. Mc in 1 week to have the malathi removed from her left chest pacemaker site. She should follow up with Dr. Duncan in 2 weeks for further cardiac management of her sick sinus syndrome. The patient was instructed to return to the emergency room for any chest pain or shortness of breath, any dizziness, weakness or any other concerning symptoms. The patient was instructed to watch her pacemaker site for signs of infection, redness, swelling or drainage from the site. The patient verbalized understanding. This is a summarization of her hospitalization. For further details, please see the entire medical record. TIME SPENT: Time spent on this discharge was approximately 60 minutes, greater than half that time was spent with the patient discussing discharge plans and instructions. CONDITION ON DISCHARGE: Stable. JAZZ SHOEMAKER, CIO [id number]/[facility] #: [id number] [facility] H[facility]PITALMendez
== END 2018-06-28 20:05 | disposition home or self-care (01) | DRG 171 ==
LOC: ED 13:26 → ICU 18:31 → MEDTELE 06-26 19:16
PROVIDERS: ADMIT Internal Medicine; ATTEND Internal Medicine
PROC: 02H63JZ Insertion of Pacemaker Lead into Right Atrium, Percutaneous Approach (ICD-10-PCS; 2018-06-26)
PROC: 02HK3JZ Insertion of Pacemaker Lead into Right Ventricle, Percutaneous Approach (ICD-10-PCS; 2018-06-26)
PROC: 0JH606Z Insertion of Pacemaker, Dual Chamber into Chest Subcutaneous Tissue and Fascia, Open Approach (ICD-10-PCS; principal; 2018-06-26 12:45)
DX: I49.5 Sick sinus syndrome (principal); D68.59 Other primary thrombophilia; J81.1 Chronic pulmonary edema; Z68.44 Body mass index [BMI] 60.0-69.9, adult; I44.0 Atrioventricular block, first degree; I49.1 Atrial premature depolarization; I10 Essential (primary) hypertension; E11.9 Type 2 diabetes mellitus without complications; E78.5 Hyperlipidemia, unspecified; M48.00 Spinal stenosis, site unspecified; E66.9 Obesity, unspecified; G25.81 Restless legs syndrome; J45.909 Unspecified asthma, uncomplicated; M51.36 Other intervertebral disc degeneration, lumbar region; M17.0 Bilateral primary osteoarthritis of knee; M76.9 Unspecified enthesopathy, lower limb, excluding foot; E83.42 Hypomagnesemia; E28.2 Polycystic ovarian syndrome; R51 Headache; G47.33 Obstructive sleep apnea (adult) (pediatric); M54.9 Dorsalgia, unspecified; G89.29 Other chronic pain; R06.02 Shortness of breath; M25.512 Pain in left shoulder; Z86.718 Personal history of other venous thrombosis and embolism; Z98.51 Tubal ligation status; Z86.711 Personal history of pulmonary embolism; Z85.3 Personal history of malignant neoplasm of breast; Z92.3 Personal history of irradiation; Z88.2 Allergy status to sulfonamides; Z88.1 Allergy status to other antibiotic agents; Z88.0 Allergy status to penicillin; Z88.8 Allergy status to other drugs, medicaments and biological substances; Z91.048 Other nonmedicinal substance allergy status; Z82.5 Family history of asthma and other chronic lower respiratory diseases; Z83.49 Family history of other endocrine, nutritional and metabolic diseases; Z83.3 Family history of diabetes mellitus; Z82.49 Family history of ischemic heart disease and other diseases of the circulatory system; Z83.52 Family history of ear disorders; Z82.0 Family history of epilepsy and other diseases of the nervous system; Z83.2 Family history of diseases of the blood and blood-forming organs and certain disorders involving the immune mechanism; Z82.61 Family history of arthritis; I07.1 Rheumatic tricuspid insufficiency; I77.819 Aortic ectasia, unspecified site; Z79.01 Long term (current) use of anticoagulants; Z79.84 Long term (current) use of oral hypoglycemic drugs
CPT/HCPCS: 33208; 36415; 70470; 71045; 71046; 80048; 80053; 81003; 81015; 83605; 83735; 83880; 84443; 84484; 85025; 85379; 85610; 85652; 85730; 86140; 86618; 87086; 87641; 93005; 93306; 94640; 99156; 99157; 99285; A9270-GY; C1785; C1898; C8929; J0171; J0461; J0610; J0690; J1644; J1940; J2250; J2310; J2405; J3010; J3475; Q9967

== ENCOUNTER 2020-04-09 10:48 | Observation (INO) ==
[2020-04-09] MEDS ORDERED: NS 0.9% 1000 ml BAG 1,000 ML IV ONE (11:36)
[2020-04-09 12:04] LABS: ABS Basophils 0.1 10^3/ul (0-0.2); ABS Eosinophils 0.5 10^3/ul (0-0.6); ABS Lymphocytes 1.4 10^3/ul (1.0-4.8); ABS Monocytes 0.9 10^3/ul (0-0.8); Eosinophil % 4.2 %; Hematocrit 36 % (35-47); Lymphocyte % 12.1 %; Mean Corpuscular HGB Conc 33 g/dL (31-36); Mean Corpuscular Hemoglobin 30 pg (27-31); Mean Corpuscular Volume 90 fL (80-97); Mean Platelet Volume 8.6 fL (7.4-10.4); Nucleated Red Blood Cells % 0.1; Platelet Count 290 10^3/uL (150-450); Red Blood Count 4.06 10^6 /uL (3.70-4.87); Red Cell Distribution Width 15 % (10-15); White Blood Count 11.5 10^3/uL (3.5-10.8)
[2020-04-09 12:28] LABS: Albumin 4.1 g/dL (3.2-5.2); Albumin/Globulin Ratio 1.6 (1-3); BUN/Creatinine Ratio 13.1 (8-20); Calcium 9.3 mg/dL (8.6-10.3); EGFR African American 51.3 (>60); EGFR Non-African American 42.4 (>60); Globulin 2.6 g/dL (2-4); Potassium 4.4 mmol/L (3.5-5.0); Total Protein 6.7 g/dL (6.4-8.9)
[2020-04-09 13:12] LABS: Hepatitis C Antibody Negative (Negative)
[2020-04-09 13:15] LABS: Urine Appearance Cloudy; Urine Bilirubin Negative (Negative); Urine Blood Negative (Negative); Urine Color Yellow; Urine Glucose Negative (Negative); Urine Ketones Negative (Negative); Urine Nitrite Negative (Negative); Urine Protein Negative (Negative); Urine Specific Gravity 1.013 (1.010-1.030); Urine Urobilinogen Negative (Negative)
[2020-04-09] MEDS ORDERED: oxyCODONE/Acetamin 5/325 mg TAB PO PRN (14:32)
[2020-04-09] MEDS ORDERED: Morphine 2 MG/ML SYRINGE IV PRN (14:32)
[2020-04-09] MEDS ORDERED: cefTRIAXone 1 gm/50 mL NS BAG 1 GM/50 ML BAG IVPB ONE (14:38)
[2020-04-09] MEDS ORDERED: HYDROcodone/ACETAMIN 5/325 mg TAB PO PRN (14:39)
[2020-04-09] MEDS ORDERED: Albuterol HFA INHALER 8 gm MDI INH PRN (14:52)
[2020-04-09] MEDS ORDERED: Dextrose 50% Syringe 50 ml 25 GM/50 ML SYRINGE IV PUSH PRN (15:53)
[2020-04-09] MEDS: NS 0.9% 1000 ml BAG 1,000 ML IV SCH (16:32)
[2020-04-09] MEDS: Ondansetron 4 mg VIAL 2 MG/ML 2 ml VIAL IV PRN (16:42)
[2020-04-09] MEDS: Insulin LISPRO 100 units/ml(*) SUBCUT SCH (16:44)
[2020-04-09 19:38] LABS: INR 2.01 (0.82-1.09)
[2020-04-09] MEDS: Mometasone/Formoter 200/5 MDI INH SCH (20:10)
[2020-04-10] MEDS: NS 0.9% 1000 ml BAG 1,000 ML IV SCH (02:54)
[2020-04-10] MEDS: Ondansetron 4 mg VIAL 2 MG/ML 2 ml VIAL IV PRN (02:57)
[2020-04-10 05:05] LABS: INR 2.05 (0.82-1.09)
[2020-04-10 05:10] LABS: CO2 Carbon Dioxide 22 mmol/L (22-32); Calcium 8.2 mg/dL (8.6-10.3); Chloride 105 mmol/L (101-111); Sodium 135 mmol/L (135-145)
[2020-04-10 05:15] LABS: Blood Urea Nitrogen 15 mg/dL (6-24); EGFR African American 59.1 (>60); EGFR Non-African American 48.8 (>60); Glucose 104 mg/dL (70-100)
[2020-04-10 05:20] LABS: Anion Gap 8 mmol/L (2-11)
[2020-04-10 07:09] LABS: ABS Basophils 0.1 10^3/ul (0-0.2); ABS Eosinophils 0.5 10^3/ul (0-0.6); ABS Monocytes 0.7 10^3/ul (0-0.8); Eosinophil % 5.8 %; Hematocrit 33 % (35-47); Hemoglobin 11.2 g/dL (12.0-16.0); Lymphocyte % 12.7 %; Mean Corpuscular HGB Conc 34 g/dL (31-36); Mean Corpuscular Hemoglobin 30 pg (27-31); Mean Corpuscular Volume 90 fL (80-97); Mean Platelet Volume 8.1 fL (7.4-10.4); Nucleated Red Blood Cells % 0.1; Platelet Count 236 10^3/uL (150-450); Red Blood Count 3.68 10^6 /uL (3.70-4.87); Red Cell Distribution Width 15 % (10-15); White Blood Count 8.1 10^3/uL (3.5-10.8)
[2020-04-10] MEDS: Insulin LISPRO 100 units/ml(*) SUBCUT SCH ×2 (07:22→13:37)
[2020-04-10] MEDS: Mometasone/Formoter 200/5 MDI INH SCH (08:24)
[2020-04-10] MEDS ORDERED: Insulin GLARGINE 100 un/ml (*) 10 ml VIAL SUBCUT SCH (09:00)
[2020-04-10] MEDS ORDERED: CMCS:Anastrozole 1 mg TAB (NF) PO SCH (09:00)
[2020-04-10] MEDS ORDERED: SPIRIVA Respimat (tiotropium) 2.5 mcg/inh Inhaler INH SCH (09:00)
[2020-04-10] MEDS ORDERED: Magnesium Hydroxide LIQ 30 ML UDC PO PRN (10:16)
[2020-04-10 11:21] VITALS: BP 127/71
== END 2020-04-10 14:45 | disposition home or self-care (01) ==
LOC: ED 10:48 → SSU 10:48
PROVIDERS: ADMIT Internal Medicine; ATTEND Internal Medicine

== ENCOUNTER 2024-07-14 09:39 | Inpatient (IN) ==
[2024-07-14 10:23] LABS: ABS Monocytes 1.1 10^3/uL (0.0-0.9); ABS Neutrophils 17.6 10^3/uL (1.5-7.6); Eosinophil % 0.1 %; Hematocrit 38.8 % (35-45); Hemoglobin 12.8 g/dL (11.5-14.3); Lymphocyte % 5.1 %; Mean Corpuscular Hemoglobin 28.7 pg (27-33); Mean Corpuscular Volume 87.1 fL (80-97); Mean Platelet Volume 8.9 fL (7.5-11.2); Platelet Count 291 10^3/uL (150-450); Red Blood Count 4.45 10^6/uL (3.63-4.92); Red Cell Distribution Width 14.8 % (12-17); White Blood Count 19.8 10^3/uL (3.8-11.8)
[2024-07-14] MEDS: Albuterol/Ipratropium NEB.SOL (2.5/0.5 MG) 3 ML NEB.SOLN INH ONE (10:26)
[2024-07-14] MEDS: methylPREDNISolone SOD SUCC 125 mg 2 ML VIAL IV ONE (10:31)
[2024-07-14] MEDS: cefTRIAXone 1 gm/50 mL D5W 1 GM/50 ML BAG IV ONE (10:36)
[2024-07-14 10:48] LABS: High Sens Troponin Baseline 10 pg/mL (<15); INR 3.23 (0.85-1.14)
[2024-07-14 11:05] LABS: ALT 21 U/L (7-52); Albumin 4.1 g/dL (3.2-5.2); Albumin/Globulin Ratio 1.6 (1-3); Alkaline Phosphatase 64 U/L (35-149); Anion Gap 10 mmol/L (2-16); Blood Urea Nitrogen 22 mg/dL (6-24); C Reactive Protein 43.32 mg/L (<8.01); CO2 Carbon Dioxide 28 mmol/L (22-32); Calcium 9.4 mg/dL (8.6-10.3); Chloride 99 mmol/L (101-111); Creatinine, Serum 0.77 mg/dL (0.51-0.95); Globulin 2.5 g/dL (2-4); Glucose 151 mg/dL (70-100); Sodium 137 mmol/L (135-145); Total Bilirubin 0.9 mg/dL (0.2-1.0); Total Protein 6.6 g/dL (6.4-8.9); eGFR CKD-EPI 88.3 (>60)
[2024-07-14] MEDS: Lactated Ringers 1000 ml BAG IV.FLUID IV ONE (11:30)
[2024-07-14 12:03] LABS: Potassium Redraw 4.3 mmol/L (3.5-5.0)
[2024-07-14] MEDS: Magnesium Sulfate 2 gm BAG 2 GM/50 ML BAG IVPB ONE ×2 (13:42→18:43)
[2024-07-14] MEDS ORDERED: Sulfur Hexaflouride MICROSPHR 25 MG VIAL IV PRN (15:14)
[2024-07-14] MEDS ORDERED: Dextrose 50% Syringe 50 ml 25 GM/50 ML SYRINGE IV PUSH PRN (15:15)
[2024-07-14] MEDS ORDERED: HYDROcodone/ACETAMIN 5/325 mg TAB PO PRN (15:16)
[2024-07-14] MEDS ORDERED: Albuterol HFA INHALER 8 gm MDI INH PRN (15:16)
[2024-07-14] MEDS ORDERED: Warfarin per PHARMACY **NOTE FOLLOW UP SCH (16:00)
[2024-07-14] MEDS: Furosemide 40 mg/4 ml IV VIAL IV SLOW PU ONE (17:44)
[2024-07-14] MEDS: Insulin GLARGINE 100 un/ml 10 ml VIAL SUBCUT SCH (21:46)
[2024-07-14] MEDS: methylPREDNISolone SOD SUCC 40 mg/ml 1 ml VIAL IV SCH (21:48)
[2024-07-14] MEDS: Mometasone/Formoter 200/5 MDI INH SCH (23:02)
[2024-07-15] MEDS: Ondansetron ODT 4 mg TAB 4 MG TAB PO PRN (04:12)
[2024-07-15 07:32] LABS: INR 2.77 (0.85-1.14)
[2024-07-15 07:34] LABS: ABS Lymphocytes 0.5 10^3/uL (1.0-4.8); ABS Monocytes 0.2 10^3/uL (0.0-0.9); ABS Neutrophils 14.2 10^3/uL (1.5-7.6); Hematocrit 38.2 % (35-45); Hemoglobin 12.5 g/dL (11.5-14.3); Lymphocyte % 3.6 %; Mean Corpuscular Hemoglobin 28.7 pg (27-33); Mean Corpuscular Hgb Conc 32.8 g/dL (31-36); Mean Corpuscular Volume 87.6 fL (80-97); Mean Platelet Volume 8.9 fL (7.5-11.2); Platelet Count 235 10^3/uL (150-450); Red Blood Count 4.35 10^6/uL (3.63-4.92); Red Cell Distribution Width 14.8 % (12-17)
[2024-07-15 07:49] LABS: Calcium 9.3 mg/dL (8.6-10.3); Creatinine, Serum 0.75 mg/dL (0.51-0.95); Potassium 4.8 mmol/L (3.5-5.0); eGFR CKD-EPI 91.1 (>60)
[2024-07-15] MEDS ORDERED: Dextrose 50% Syringe 50 ml 25 GM/50 ML SYRINGE IV PUSH PRN (08:31)
[2024-07-15] MEDS: CMC:Anastrozole 1 mg TAB (NF) PO SCH (08:53)
[2024-07-15] MEDS: Warfarin DAILY REMINDER **NOTE FOLLOW UP SCH (20:34)
[2024-07-15] MEDS: Insulin GLARGINE 100 un/ml 10 ml VIAL SUBCUT ONE (22:33)
[2024-07-16 06:14] LABS: ABS Basophils 0.1 10^3/uL (0.0-0.1); ABS Lymphocytes 1.2 10^3/uL (1.0-4.8); ABS Neutrophils 15.3 10^3/uL (1.5-7.6); Hematocrit 35.6 % (35-45); Hemoglobin 11.8 g/dL (11.5-14.3); Lymphocyte % 6.8 %; Mean Corpuscular Hemoglobin 28.8 pg (27-33); Mean Corpuscular Volume 87.1 fL (80-97); Mean Platelet Volume 8.5 fL (7.5-11.2); Platelet Count 270 10^3/uL (150-450); Red Blood Count 4.09 10^6/uL (3.63-4.92); Red Cell Distribution Width 14.9 % (12-17); White Blood Count 17.5 10^3/uL (3.8-11.8)
[2024-07-16 06:21] LABS: INR 3.66 (0.85-1.14)
[2024-07-16 06:47] LABS: Calcium 9.5 mg/dL (8.6-10.3); Creatinine, Serum 0.81 mg/dL (0.51-0.95); Potassium 4.7 mmol/L (3.5-5.0); eGFR CKD-EPI 83.1 (>60)
[2024-07-16 11:02] VITALS: BP 113/65
[2024-07-16] MEDS ORDERED: Insulin GLARGINE 100 un/ml 10 ml VIAL SUBCUT SCH (21:00)
== END 2024-07-16 12:53 | disposition home or self-care (01) | DRG 141 ==
LOC: ED 09:39 → EDHOLD 09:39 → MEDTELE 15:00
PROVIDERS: ADMIT Internal Medicine; ATTEND Internal Medicine